=== PATIENT | female | born 1965 | race Caucasian/White ===

== ENCOUNTER 2016-09-17 18:09 | Emergency (ER) | payer MEDICAID, OTHER ==
[~2016-09-17] VITALS: Ht 157.5 cm; Wt 89.0 kg
[2016-09-17 18:13] VITALS: Ht 157.5 cm; Wt 89.0 kg
--- NOTE | 2016-09-17 20:28 | RADRPT ---
PROCEDURE: Left knee x-ray CLINICAL INDICATION: Right knee trauma. TECHNIQUE: 3 views of the left knee were obtained. COMPARISON: None FINDINGS: There is normal mineralization. No acute fracture or dislocation is seen. Mild degenerative changes in the medial and lateral joint compartments with small marginal osteophyt es. Small superior patellar enthesophyte. There is no joint effusion. There is no significant soft tissue swelling. IMPRESSION: No acute fracture. RPTAT: [facility] Physician Ashlee Date Time Electronically viewed and signed by Physician Ashlee on 09/17/2016 20:27 RS/
--- NOTE | 2016-09-17 20:29 | RADRPT ---
PROCEDURE: XR Tibia and Fibula. CLINICAL INDICATION: Right leg trauma. TECHNIQUE: 4 views of the right tibia and fibula were obtained. COMPARISON: No prior studies are available for comparison. FINDINGS: There is normal mineralization and alignment. No fracture or osseous lesion is identified. The joint s are unremarkable. Dystrophic calcifications in the plantar fascia. Otherwise, there are normal so ft tissues without evidence of soft tissue swelling. Plantar and posterior dorsal calcaneal enthesop hytes. IMPRESSION: No acute fracture. RPTAT: [facility] Physician Ashlee Date Time Electronically viewed and signed by Physician Ashlee on 09/17/2016 20:29 RS/
--- NOTE | 2016-09-17 20:31 | RADRPT ---
PROCEDURE: XR Right Ankle. CLINICAL INDICATION: Right ankle pain. TECHNIQUE: AP, oblique and lateral views of the right ankle were performed. COMPARISON: None. FINDINGS: There is normal mineralization and alignment. No acute fracture or osseous lesion is identified. The joints are normal. Dystrophic calcifications in the plantar fascia. Plantar and posterior dorsal calcaneal enthesophyt es. Soft tissue swelling over the bilateral ankle, greater medially. Soft tissues otherwise unrema rkable. IMPRESSION: No acute fracture. RPTAT: [facility] Physician Ashlee Date Time Electronically viewed and signed by Physician Ashlee on 09/17/2016 20:30 RS/
[2016-09-17] MEDS ORDERED: IBUP400T22 PO (20:51)
[2016-09-17] MEDS ORDERED: CEPH500C PO (20:51)
[2016-09-17 21:14] VITALS: BP 143/68; PULSE 77; RESP 18; TEMP 97.1
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
== END 2016-09-17 21:15 | disposition home or self-care (01) ==
LOC: FTE 18:09
DX: S91.001A Unspecified open wound, right ankle, initial encounter (principal); L03.115 Cellulitis of right lower limb; I10 Essential (primary) hypertension; E11.9 Type 2 diabetes mellitus without complications; W22.8XXA Striking against or struck by other objects, initial encounter; Y92.9 Unspecified place or not applicable
CPT/HCPCS: 73562; 73590; 73610; Z7502

== ENCOUNTER 2017-01-27 16:06 | Emergency (ER) | payer MEDICAID ==
[~2017-01-27] VITALS: Wt 79.5 kg
[~2017-01-27 16:06] MED LIST: CEPH500C PO; IBUP400T22 PO
[2017-01-27] MEDS ORDERED: FAMOTIDINE 20 MG INJ IV STA (18:55)
[2017-01-27] MEDS ORDERED: KETOROLAC 15 MG INJ IV STA (18:55)
[2017-01-27] MEDS ORDERED: SOD CHLORIDE 0.9% 1,000 ML IV STA (18:55)
[2017-01-27] MEDS ORDERED: ONDANSETRON 4 MG INJ IV STA (18:55)
[2017-01-27 19:29] LABS: ADD SCAN DIFF NO
[2017-01-27 19:31] LABS: BASOPHIL # 0.1 10^3/ul (0.0-0.1); BASOPHILS % 0.7 % (0.0-2.0); EOSINOPHILS # 1.4 10^3/ul (0.0-0.5); EOSINOPHILS % 12.2 % (0.0-7.0); HEMATOCRIT 37.6 % (37.0-47.0); HEMOGLOBIN 12.3 g/dl (12.0-16.0); LYMPHOCYTES % 26.4 % (15.0-51.0); MEAN CORPUSCULAR HEMOGLOBIN 27.9 pg (29.0-33.0); MEAN CORPUSCULAR HGB CONC 32.7 g/dl (32.0-37.0); MEAN CORPUSCULAR VOLUME 85.3 fl (82.0-101.0); MONOCYTE # 0.7 10^3/ul (0.3-0.9); MONOCYTES % 6.2 % (0.0-11.0); NEUTROPHIL # 6.2 10^3/ul (1.6-7.5); PLATELET COUNT 287 10^3/UL (140-415); RED BLOOD COUNT 4.41 10^6/ul (4.20-5.40); RED CELL DISTRIBUTION WIDTH 13.2 % (11.5-14.5); WHITE BLOOD COUNT 11.5 10^3/ul (4.8-10.8)
[2017-01-27 19:53] LABS: ALBUMIN 3.6 g/dl (3.3-4.9); ALBUMIN/GLOBULIN RATIO 0.67; BILIRUBIN,INDIRECT 0.4 mg/dl (0-1.1); BILIRUBIN,TOTAL 0.4 mg/dl (0.2-1.3); CALCIUM 10.2 mg/dl (8.4-10.2); CREATININE 0.56 mg/dl (0.44-1.00); POTASSIUM 5.1 mmol/L (3.5-5.1); TOTAL PROTEIN 8.9 g/dl (6.1-8.1)
[2017-01-27] MEDS ORDERED: LISI-313 PO (20:02)
[2017-01-27] MEDS ORDERED: GLIP-95 PO (20:02)
[2017-01-27] MEDS ORDERED: ASPI81TA50 PO (20:02)
[2017-01-27] MEDS ORDERED: INSU300I SQ (20:03)
[2017-01-27] MEDS ORDERED: INSULIN LISPRO 100 UNIT/ML VIAL SC STA (20:07)
[2017-01-27 20:11] LABS: ADD UMIC YES; UR ASCORBIC ACID NEGATIVE (NEGATIVE); UR BILIRUBIN (Dip) NEGATIVE (NEGATIVE); UR BLOOD (Dip) 3+ mg/dL (NEGATIVE); UR CLARITY CLEAR (CLEAR); UR COLOR YELLOW (YELLOW); UR GLUCOSE (Dip) 3+ mg/dL (NEGATIVE); UR KETONES (Dip) NEGATIVE (NEGATIVE); UR LEUKOCYTE ESTERASE (Dip) NEGATIVE Leu/ul (NEGATIVE); UR NITRITE (Dip) NEGATIVE (NEGATIVE); UR RBC 33 /HPF (0-5); UR SPECIFIC GRAVITY (Dip) 1.032 (1.003-1.030); UR TOTAL PROTEIN (Dip) NEGATIVE (NEGATIVE); UR UROBILINOGEN (Dip) NEGATIVE (NEGATIVE)
--- NOTE | 2017-01-27 20:48 | RADRPT ---
PROCEDURE: CT scan of the abdomen and pelvis without IV contrast. CLINICAL INDICATION: 51-year-old female with left flank pain. TECHNIQUE: Thin section axial, coronal and sagittal images were performed through the abdomen and pelvis without contrast. Radiation Dose: CTDI: 16 and DLP: 969 One or more of the following dose reduction techniques were used: - Automated exposure control. - Adjustment of the mA and/or kV according to patient size. Use of iterative reconstruction technique. COMPARISON: Chest x-ray 08/13/2016 06:18 a.m. FINDINGS: Soft tissues: Normal.. Lungs and pleural spaces: There ground-glass infiltrates peribronchial thickening in the lingula. T here are small nodules in the left lower lobe. No pleural effusion is identified. Heart: Normal. No pericardial effusion is identified. The liver, common bile duct and gallbladder: The liver is unremarkable. There is some sludge and 82 mm gallstone in the dependent portion of the gallbladder. No gallbladder wall thickening is identi fied. No hepatic mass is identified. Gastrointestinal: Thickening of the gastric wall is attributed to incomplete distension. There is f ecal material throughout the colon. The small bowel loops have a normal caliber. The vermiform lori endix is normal. There is no evidence of diverticulosis or diverticulitis. Pancreas: Normal. Kidneys, bladder and adrenal glands : Normal. Spleen: Normal. Lymph nodes: Normal. Reproductive system and pelvis : A subserosal 3.2 cm leiomyoma is suspected off of the right dorsal fundus of the uterus. No abnormal adnexal mass is identified and no free fluid is noted in the cul- de-sac. Bony elements: There are degenerative osteophytes in the thoracic and lumbosacral spine. There are degenerative changes in both hips. No acute bony fracture or bone metastasis is identified. Vasculature: Normal. IMPRESSION: 1. There ground-glass infiltrates in the lingula and small nodules in the left lower lobe measuring up to 4.4 mm in size. There is peribronchial thickening in the bronchial weston being to the lingul a and left lower lobe. These findings may be the result of small airway disease and could be the re sult of a pneumonia. TB and other granulomatous etiologies should be excluded. 2. 2 mm cholelith with a small amount of sludge in the gallbladder. 3. 3.2 cm subserosal leiomyoma off of the right fundus of the uterus. 4. Osteoarthritis of the thoracic and lumbosacral spine. RPTAT:AAJJ Austin Dominguez Physician Date Time Electronically viewed and signed by Austin Dominguez Physician on 01/27/2017 20:47 PORTILLO/
--- NOTE | 2017-01-27 20:52 | ERD ---
ER Documentation Chief Complaint Date/Time DATE: 01/27/17 TIME: 20:49 Chief Complaint luq pain w emesis this am HPI This is a 51-year-old female who presents to the emergency room for evaluation of left-sided flank pain. The patient states that she has vomited once, and describes her pain as a sharp pain with no radiation. She presents to the emergency room for further evaluation and denying any fever or burning associated with this. She does say she has a history of high blood pressure and diabetes and she takes insulin for that. ROS All systems reviewed and are negative except as per history of present illness. Medications Home Meds Reported Medications Insulin Glargine,Hum.rec.anlog (Thuanradha [place]) 300 Unit/1 Ml Insuln.pen, 15 UNIT SQ QHS 01/27/17 Aspirin (Aspir-Low) 81 Mg Tablet.dr, 81 MG PO DAILY 01/27/17 Lisinopril* (Lisinopril*) 5 Mg Tablet, 5 MG PO DAILY, #30 TAB 01/27/17 Glipizide* (Glipizide*) 10 Mg Tablet, 20 MG PO AC BREAKFAST DINNER, TAB 01/27/17 Discontinued Scripts Ibuprofen* (Motrin*) 400 Mg Tab, 400 MG PO Q6H Y for PAIN AND OR ELEVATED TEMP, #30 TAB Prov:ROLANDO ROMAN MD 09/17/16 Cephalexin* (Cephalexin*) 500 Mg Capsule, 500 MG PO Q8, #21 CAP Prov:ROLANDO ROMAN MD 09/17/16 Allergies Allergies: Coded Allergies: No Known Allergy (Unverified , 01/27/17) PMhx/Soc Medical and Surgical Hx: pt denies Surgical Hx History of Surgery: No Anesthesia Reaction: No Hx Neurological Disorder: No Hx Respiratory Disorders: No Hx Cardiac Disorders: Yes (HTN) Hx Psychiatric Problems: No Hx Miscellaneous Medical Probl: Yes (DM II) Hx Alcohol Use: No Hx Substance Use: No Hx Tobacco Use: No Smoking Status: Never smoker Physical Exam Vitals Vital Signs Date Time Temp Pulse Resp B/P Pulse Ox O2 Delivery O2 Flow Rate FiO2 01/27/17 20:35 103 23 140/83 96 Room Air 01/27/17 19:21 101 20 150/77 96 Room Air 01/27/17 16:10 99.2 117 20 118/65 96 Physical Exam INITIAL VITAL SIGNS: Reviewed by me GENERAL: The patient is well developed and appropriate for usual state of health in no apparent distress HEENT: Pupils equal, round, and reactive to light. EOMI. There is no scleral icterus. NECK: C-spine is soft and supple, there is no meningismus. There is no cervical lymphadenopathy. LUNGS: Clear to auscultation bilaterally. There are no rales, wheezes or rhonchi. HEART: Regular rate and rhythm, no murmurs, clicks, rubs or gallops. ABDOMEN: Left upper quadrant tenderness to palpation, otherwise, negative Schwartz sign, soft, non-tender, non-distended. There are bowel sounds in all four quadrants. No rebound or guarding. EXTREMITIES: There is no peripheral cyanosis or edema. No focal swelling or erythema. NEUROLOGICAL: The patient moves all four extremities with 5/5 strength. Cranial nerves II - XII are intact. Normal gait. Alert and oriented SKIN: There is no apparent rash or petechiae. HEME/LYMPHATIC: There is no evidence of excessive bruising or lymphedema. PSYCHIATRIC: The patient does not appear anxious or depressed. Result Diagram: 01/27/17190901/27/171909 Results 24 hrs Laboratory Tests Test 01/27/17 19:00 01/27/17 19:10 01/27/17 20:33 Urine Color YELLOW Urine Clarity CLEAR Urine pH 6.0 Urine Specific [place] 1.032 Urine Ketones NEGATIVEmg/dL Urine Nitrite NEGATIVEmg/dL Urine Bilirubin NEGATIVEmg/dL Urine Urobilinogen NEGATIVEmg/dL Urine Leukocyte Esterase NEGATIVELeu/ul Urine Microscopic RBC 33/HPF Urine Microscopic WBC 12/HPF Urine Hemoglobin 3+mg/dL Urine Glucose 3+mg/dL Urine Total Protein NEGATIVEmg/dl White Blood Count 11.510^3/ul Red Blood Count 4.4110^6/ul Hemoglobin 12.3g/dl Hematocrit 37.6% Mean Corpuscular Volume 85.3fl Mean Corpuscular Hemoglobin 27.9pg Mean Corpuscular Hemoglobin Concent 32.7g/dl Red Cell Distribution Width 13.2% Platelet Count 36301^3/UL Mean Platelet Volume 10.0fl Neutrophils % 54.0% Lymphocytes % 26.4% Monocytes % 6.2% Eosinophils % 12.2% Basophils % 0.7% Neutrophils # 6.210^3/ul Lymphocytes # 3.010^3/ul Monocytes # 0.710^3/ul Eosinophils # 1.410^3/ul Basophils # 0.110^3/ul Nucleated Red Blood Cells # 0.010^3/ul Sodium Level 136mmol/L Potassium Level 5.1mmol/L Chloride Level 90mmol/L Carbon Dioxide Level 32mmol/L Anion Gap 19 Blood Urea Nitrogen 17mg/dl Creatinine 0.56mg/dl Glucose Level 476mg/dl Calcium Level 10.2mg/dl Total Bilirubin 0.4mg/dl Direct Bilirubin 0.00mg/dl Indirect Bilirubin 0.4mg/dl Aspartate Amino Transf (AST/SGOT) 26IU/L Alanine Aminotransferase (ALT/SGPT) 41IU/L Alkaline Phosphatase 186IU/L Total Protein 8.9g/dl Albumin 3.6g/dl Globulin 5.30g/dl Albumin/Globulin Ratio 0.67 Lipase 95U/L Bedside Glucose 424mg/dL Current Medications Medications (Trade) Dose Ordered Sig/Naheed Route PRN Reason Start Time Stop Time Status Last Admin Dose Admin Sodium Chloride (NS) 1,000 ml @ 1,000 mls/hr Q1H STAT IV 01/27/17 18:55 01/27/17 19:54 DC 01/27/17 19:20 Ondansetron HCl (Zofran Inj) 4 mg ONCE STAT IV 01/27/17 18:55 01/27/17 18:57 DC 01/27/17 19:20 Famotidine (Pepcid Iv) 20 mg ONCE STAT IV 01/27/17 18:55 01/27/17 18:57 DC 01/27/17 19:20 Ketorolac Tromethamine (Toradol) 15 mg ONCE STAT IV 01/27/17 18:55 01/27/17 18:57 DC 01/27/17 19:20 Insulin Human Lispro (Humalog) 12 unit ONCE STAT SC 01/27/17 20:07 01/27/17 20:10 DC 01/27/17 20:38 Procedures/MDM CT abdomen pelvis without: 1. There ground-glass infiltrates in the lingula and small nodules in the left lower lobe measuring up to 4.4 mm in size. There is peribronchial thickening in the bronchial weston being to the lingula and left lower lobe. These findings may be the result of small airway disease and could be the result of a pneumonia. TB and other granulomatous etiologies should be excluded. 2. 2 mm cholelith with a small amount of sludge in the gallbladder. 3. 3.2 cm subserosal leiomyoma off of the right fundus of the uterus. 4. Osteoarthritis of the thoracic and lumbosacral spine. This 51-year-old female presents to the ER for evaluation of abdominal pain. When I evaluated this patient she did have some pain in the left upper quadrant. The patient was hemodynamically stable, nontoxic appearing. Lab work was obtained and the urinalysis did show hematuria. I did obtain a CT of abdomen pelvis and CT shows a groundglass infiltrates in the lingula of the left lower lobe. This is an area where the patient is having some discomfort. She is not hypoxic. She is not febrile at this time. She was given Levaquin in the emergency room and will be discharged home at this time with a prescription for Levaquin to take over the course of the next 7 days. This patient also was found to have a blood sugar of 472. She was given 1 L of fluid and was given 12 units of subcutaneous insulin. Patient states that she will take her Lantus at night tonight. Departure Diagnosis: Primary Impression: Left lower lobe pneumonia Additional Impression: Uncontrolled diabetes mellitus Condition: Stable PHILIPP MORAN DO Jan 27, 2017 20:52
[2017-01-27] MEDS ORDERED: LEVO750T8 PO (20:55)
[2017-01-27] MEDS ORDERED: LEVOFLOXACIN 750 MG TABLET PO ONE (21:00)
[2017-01-27 21:20] VITALS: BP 126/61; PULSE 96; RESP 17
== END 2017-01-27 21:22 | disposition home or self-care (01) ==
LOC: E/R 16:06
DX: J18.1 Lobar pneumonia, unspecified organism (principal); E11.9 Type 2 diabetes mellitus without complications; I10 Essential (primary) hypertension; Z79.82 Long term (current) use of aspirin; Z79.4 Long term (current) use of insulin
CPT/HCPCS: 74176; 80053; 81001; 82962; 83690; 85025; 96372; 96374; 96375; J1815; J1885; J2405; J7030; Z7502; Z7610

== ENCOUNTER 2018-07-25 22:54 | Inpatient (IN) | payer MEDICAID ==
[~2018-07-25] VITALS: Ht 165.1 cm; Wt 98.0 kg
[~2018-07-25 22:54] MED LIST changes: +ASPI81TA50 PO; -CEPH500C PO; +GLIP10TA14 PO; -IBUP400T22 PO; +INSU300I SQ; +LEVO750T8 PO; +LISI-313 PO
--- NOTE | 2018-07-26 04:09 | ERD ---
ER Documentation Chief Complaint Chief Complaint R FOOT PAIN S/P FALL HPI This is a 52-year-old female with right foot pain status post fall. Patient was walking she tripped. She complains of pain in her right ankle. Denies fevers chills nausea vomiting. Denies any other trauma. ROS All systems reviewed and are negative except as per history of present illness. Medications Home Meds Reported Medications Insulin Glargine,Hum.rec.anlog ([place]i Solostar) 300 Unit/1 Ml Insuln.pen, 30 UNIT SQ BID 01/27/17 Aspirin (Aspir-Low) 81 Mg Tablet.dr, 81 MG PO DAILY 01/27/17 Lisinopril* (Lisinopril*) 5 Mg Tablet, 5 MG PO DAILY, #30 TAB 01/27/17 Glipizide* (Glipizide*) 10 Mg Tablet, 20 MG PO AC BREAKFAST DINNER, TAB 01/27/17 Discontinued Scripts Levofloxacin* (Levofloxacin*) 750 Mg Tablet, 750 MG PO DAILY for 10 Days, TAB Prov:PHILIPP MORAN DO 01/27/17 Allergies Allergies: Coded Allergies: No Known Allergy (Unverified , 07/26/18) PMhx/Soc History of Surgery: No Anesthesia Reaction: No Hx Neurological Disorder: No Hx Respiratory Disorders: No Hx Cardiac Disorders: Yes (HTN) Hx Psychiatric Problems: No Hx Miscellaneous Medical Probl: Yes (DM II) Hx Alcohol Use: No Hx Substance Use: No Hx Tobacco Use: No Smoking Status: Never smoker Physical Exam Vitals Vital Signs Date Temp Pulse Resp B/P (MAP) Pulse Ox O2 O2 Flow FiO2 Time Delivery Rate 07/26/18 87 19 182/83 100 Room Air 02:24 (116) 07/25/18 99.5 118 20 234/108 96 23:17 (150) Physical Exam Const: No acute distress Head: Atraumatic Eyes: Normal Conjunctiva ENT: Normal External Ears, Nose and Mouth. Neck: Full range of motion. No meningismus. Resp: Clear to auscultation bilaterally Cardio: Regular rate and rhythm, no murmurs Abd: Soft, non tender, non distended. Normal bowel sounds Skin: No petechiae or rashes Back: No midline or flank tenderness Ext: No cyanosis, or edema Neur: Awake and alert Psych: Normal Mood and Affect Procedures/MDM Foot and ankle x-ray was read by the radiologist as a trimalleolar fracture. Please see his full dictation for report. Medical decision making: This is a patient with unstable trimalleolar fracture. Patient will be admitted to hospitalist with Dr. Savage for consultation of orthopedics. Departure Diagnosis: Primary Impression: Trimalleolar fracture Encounter type: initial encounter Fracture type: closed Laterality: r [facility] Qualified Codes: S82.851A - Displaced trimalleolar fracture of right lower leg, initial encounter for closed fracture Condition: ALETHA Prieto Jul 26, 2018 04:09
[2018-07-26] MEDS ORDERED: NACL 0.9% 3 ML SYG IV SCH (04:30)
[2018-07-26] MEDS ORDERED: HYDROCODONE/APAP (5/325) TAB PO PRN (04:30)
[2018-07-26] MEDS ORDERED: ALBUTEROL/IPRATROPIUM (NEB) 3 ML AMP HHN PRN (04:30)
[2018-07-26] MEDS ORDERED: ONDANSETRON 4 MG INJ IV PRN (04:30)
[2018-07-26] MEDS: HYDROCODONE/APAP (5/325) TAB PO PRN ×2 (05:05→13:24)
[2018-07-26] MEDS ORDERED: GLUCOSE GEL 15 GRAM TUBE BUCCAL PRN (05:30)
[2018-07-26] MEDS ORDERED: GLUCOSE GEL 15 GRAM TUBE PO PRN ×2 (05:30)
[2018-07-26] MEDS ORDERED: GLUCAGON 1 MG INJ IM PRN (05:30)
[2018-07-26] MEDS ORDERED: DEXTROSE 50% 50 ML SYRINGE IV PRN ×2 (05:30)
[2018-07-26 05:36] VITALS: Ht 165.1 cm; Wt 98.0 kg
[2018-07-26 05:37] VITALS: BP 165/74; PULSE 74; RESP 18
--- NOTE | 2018-07-26 06:05 | HP ---
Date/Time of Note Date/Time of Note DATE: 07/26/18 TIME: 06:01 Assessment/Plan VTE Prophylaxis Pharmacological prophylaxis: heparin Lines/Catheters IV Catheter Type (from Nrsg): Saline Lock Assessment/Plan Assessment/Plan 1. Right malleolar fracture: Status post mechanical fall -Awaiting Ortho eval -Pain management 2. Hypertensive urgency: Adjust antihypertensives as needed 3. Diabetes with hyperglycemia: Patient insulin-dependent -Check A1c -Insulin as needed 4. Obesity with a BMI of 36: Weight reduction advised Result Diagram: 07/26/18 0438 07/26/18 0438 Results 24hrs Laboratory Tests Test 07/26/18 04:38 White Blood Count 11.3 H Red Blood Count 4.32 Hemoglobin 12.5 Hematocrit 37.2 Mean Corpuscular Volume 86.1 Mean Corpuscular Hemoglobin 28.9 L Mean Corpuscular Hemoglobin Concent 33.6 Red Cell Distribution Width 12.4 Platelet Count 206 # Mean Platelet Volume 11.0 H Immature Granulocytes % 0.400 Neutrophils % 75.8 Lymphocytes % 18.3 Monocytes % 4.5 Eosinophils % 0.7 Basophils % 0.3 Nucleated Red Blood Cells % 0.0 Immature Granulocytes # 0.050 H Neutrophils # 8.6 H Lymphocytes # 2.1 Monocytes # 0.5 Eosinophils # 0.1 Basophils # 0.0 Nucleated Red Blood Cells # 0.0 Prothrombin Time 12.0 Prothrombin Time Ratio 0.9 INR International Normalized Ratio 0.88 Activated Partial Thromboplast Time 24.1 Sodium Level 141 Potassium Level 4.8 Chloride Level 102 Carbon Dioxide Level 26 Anion Gap 13 Blood Urea Nitrogen 12 Creatinine 0.35 L Est Glomerular Filtrat Rate mL/min > 60 Glucose Level 311 H Calcium Level 9.5 Total Bilirubin 0.3 Direct Bilirubin 0.00 Indirect Bilirubin 0.3 Aspartate Amino Transf (AST/SGOT) 51 H Alanine Aminotransferase (ALT/SGPT) 56 Alkaline Phosphatase 168 H Total Protein 8.1 Albumin 4.1 Globulin 4.00 H Albumin/Globulin Ratio 1.02 Lipase 73 HPI/ROS Admit Date/Time Admit Date/Time Jul 26, 2018 at 04:04 Hx of Present Illness This is a 52-year-old female with a history of hypertension and insulin-depe ndent diabetes who presents the ER complaining of right ankle/foot pain status post fall. Patient unfortunately fell down stairs while carrying an object. When presented to ER, blood pressure was 234/108 with a heart rate of 118. Right ankle/foot x-ray shows trimalleolar fractures with tibiotalar subluxation. PMH/Family/Social Past Medical History Medical History: diabetes, hypertension Medications Current Medications IV Flush (NS 3 ml) 3 ml PER PROTOCOL IV ; Start 07/26/18 at 04:30 Ondansetron HCl (Zofran Inj) 4 mg Q6H PRN IV NAUSEA AND/OR VOMITING; Start 07/26/18 at 04:30 Acetaminophen (Tylenol Tab) 650 mg Q6H PRN PO PAIN LEVEL 1-3 OR FEVER; Start 07/26/18 at 04:30 Acetaminophen/ Hydrocodone Bitart ([place] (5/325)) 1 tab Q6H PRN PO MODERATE PAIN LEVEL 4-6; Start 07/26/18 at 04:30 Acetaminophen/ Hydrocodone Bitart ([place] (5/325)) 2 tab Q6H PRN PO SEVERE PAIN LEVEL 7-10 Last administered on 07/26/18at 05:05; Admin Dose 2 TAB; Start 07/26/18 at 04:30 Heparin Sodium (Porcine) (Heparin (5000 Units/1ml)) 5,000 unit Q12 SC ; Start 07/26/18 at 09:00 Albuterol/ Ipratropium (Duoneb) 3 ml Q2H RESP THERAPY PRN HHN SHORTNESS OF BREATH; Start 07/26/18 at 04:30 Diagnostic Test (Pha) (Accu-Chek) 1 ea 02 XX ; Start 07/27/18 at 02:00 Insulin Aspart (Novolog Insulin Pen) NOVOLOG *MODERATE* ALGORITHM WITH MEALS BEDTIME SC ; Start 07/26/18 at 07:50 Aspirin (Halfprin) 81 mg DAILY PO ; Start 07/26/18 at 09:00 Lisinopril (Zestril) 5 mg DAILY PO ; Start 07/26/18 at 09:00 Insulin Glargine (Lantus) 30 units BID@0800,2000 SC ; Start 07/26/18 at 08:00 Miscellaneous Information 1 ea NOTE XX ; Start 07/26/18 at 05:30 Glucose (Glutose) 15 gm Q15M PRN PO DECREASED GLUCOSE; Start 07/26/18 at 05:30 Glucose (Glutose) 22.5 gm Q15M PRN PO DECREASED GLUCOSE; Start 07/26/18 at 05:30 Dextrose (D50w Syringe) 25 ml Q15M PRN IV DECREASED GLUCOSE; Start 07/26/18 at 05:30 Dextrose (D50w Syringe) 50 ml Q15M PRN IV DECREASED GLUCOSE; Start 07/26/18 at 05:30 Glucagon (Glucagen) 1 mg Q15M PRN IM DECREASED GLUCOSE; Start 07/26/18 at 05:30 Glucose (Glutose) 15 gm Q15M PRN BUCCAL DECREASED GLUCOSE; Start 07/26/18 at 05:30 Coded Allergies: No Known Allergy (Unverified , 07/26/18) Past Surgical History Past Surgical Hx: other (See HPI) Family History Significant Family History: no pertinent family hx Social History Alcohol Use: none Smoking Status: Never smoker Drug Use: none Exam/Review of Systems Vital Signs Vitals Vital Signs Date Temp Pulse Resp B/P (MAP) Pulse Ox O2 O2 Flow FiO2 Time Delivery Rate 07/26/18 97.5 74 18 165/74 97 Room Air 05:37 (104) Intake and Output 07/25/18 07/25/18 07/26/18 1515:00 23:00 07:00 IntakeIntake Total 200 ml OutputOutput Total 200 ml BalanceBalance 0 ml Exam Constitutional: other (No acute distress) Head: normocephalic, atraumatic Eyes: EOMI, PERRL Respiratory: clear to auscultation, normal air movement Cardiovascular: other (Tachycardic regular rhythm) Gastrointestinal: soft, non-tender Extremities: other (Right lower extremity/ankle/foot covered. Sensation at the toes intact) ALETHA ALVAREZ MD Jul 26, 2018 06:05
--- NOTE | 2018-07-26 06:15 | NUR ---
New admission with R ankle Fx; alert, oriented x4; with h/o DM and HTN.
[2018-07-26] MEDS ORDERED: INSULIN GLARGINE [LANTus] (100 UNITS/ML) SYG SC SCH (08:00)
[2018-07-26 08:05] VITALS: BP 124/84; PULSE 63; RESP 18
[2018-07-26 08:13] VITALS: BP 153/71; PULSE 83; RESP 18
[2018-07-26] MEDS: ASPIRIN (EC) 81 MG TAB PO SCH (09:00)
[2018-07-26] MEDS: LISINOPRIL 5 MG TAB PO SCH (09:07)
[2018-07-26] MEDS: HEPARIN 5,000 UNIT/1 ML VIAL SC SCH ×2 (09:11→20:27)
[2018-07-26] MEDS: INSULIN ASPART [NOVOLOG] 3 ML PEN SC SCH ×4 (09:16→20:24)
[2018-07-26 15:05] VITALS: BP 133/61; PULSE 87; RESP 18
--- NOTE | 2018-07-26 16:43 | PN ---
Date/Time of Note Date/Time of Note DATE: 07/26/18 TIME: 16:39 Assessment/Plan VTE Prophylaxis Risk score (from Nsg)>0 risk: 7 SCD applied (from Nsg): Yes Pharmacological prophylaxis: heparin Lines/Catheters IV Catheter Type (from Nrsg): Saline Lock Assessment/Plan Assessment/Plan 1. Right malleolar fracture: Status post mechanical fall, Awaiting Ortho eval, Pain management 2. Hypertension, controlled 3. Diabetes with hyperglycemia, lantus and ISS 4. Obesity with a BMI of 36: Weight reduction advised 5. DVT prophylaxis: heparin Result Diagram: 07/26/188 07/26/188 Results 24hrs Laboratory Tests Test 07/26/18 04:38 07/26/18 09:06 07/26/18 12:55 White Blood Count 11.3 H Red Blood Count 4.32 Hemoglobin 12.5 Hematocrit 37.2 Mean Corpuscular Volume 86.1 Mean Corpuscular Hemoglobin 28.9 L Mean Corpuscular Hemoglobin Concent 33.6 Red Cell Distribution Width 12.4 Platelet Count 206 # Mean Platelet Volume 11.0 H Immature Granulocytes % 0.400 Neutrophils % 75.8 Lymphocytes % 18.3 Monocytes % 4.5 Eosinophils % 0.7 Basophils % 0.3 Nucleated Red Blood Cells % 0.0 Immature Granulocytes # 0.050 H Neutrophils # 8.6 H Lymphocytes # 2.1 Monocytes # 0.5 Eosinophils # 0.1 Basophils # 0.0 Nucleated Red Blood Cells # 0.0 Prothrombin Time 12.0 Prothrombin Time Ratio 0.9 INR International Normalized Ratio 0.88 Activated Partial Thromboplast Time 24.1 Sodium Level 141 Potassium Level 4.8 Chloride Level 102 Carbon Dioxide Level 26 Anion Gap 13 Blood Urea Nitrogen 12 Creatinine 0.35 L Est Glomerular Filtrat Rate mL/min > 60 Glucose Level 311 H Calcium Level 9.5 Total Bilirubin 0.3 Direct Bilirubin 0.00 Indirect Bilirubin 0.3 Aspartate Amino Transf (AST/SGOT) 51 H Alanine Aminotransferase (ALT/SGPT) 56 Alkaline Phosphatase 168 H Total Protein 8.1 Albumin 4.1 Globulin 4.00 H Albumin/Globulin Ratio 1.02 Lipase 73 Bedside Glucose 233 H 226 H Subjective 24 Hr Interval Summary Free Text/Dictation right ankle pain Exam/Review of Systems Vital Signs Vitals Vital Signs Date Temp Pulse Resp B/P (MAP) Pulse Ox O2 O2 Flow FiO2 Time Delivery Rate 1/16/19 98.5 87 18 133/61 97 15:05 (85) 07/26/18 Room Air 08:13 Intake and Output 07/25/18 07/25/18 07/26/18 1515:00 23:00 07:00 IntakeIntake Total 200 ml OutputOutput Total 200 ml BalanceBalance 0 ml Exam Constitutional: alert, oriented, well developed, obese Psych: no complaints, nl mood/affect Head: normocephalic, atraumatic Eyes: nl conjunctiva, EOMI, nl lids ENMT: nl external ears & nose, nl lips & teeth, nl nasal mucosa & septum Neck: supple, non-tender Respiratory: clear to auscultation, normal air movement; No congested cough, No crackles/rales, No diminished breath sounds, No intercostal retraction, No labored breathing, No respirations, No tactile fremitus, No wheezing, No other Cardiovascular: regular rate and rhythm, nl pulses; No bruits, No diastolic murmur, No edema, No gallop, No irregular rhythm, No jugular venous distention (JVD), No murmurs/extra sounds, No rub, No systolic murmur, No S3, No S4, No other Gastrointestinal: soft, nl liver, spleen, non-tender Extremities: normal pulses, other (right ankle/foot in cast) Neurological: SAUTE CHEF II-XII intact, nl mental status, nl speech, nl strength Skin: nl turgor Medications Medications Current Medications IV Flush (NS 3 ml) 3 ml PER PROTOCOL IV ; Start 07/26/18 at 04:30 Ondansetron HCl (Zofran Inj) 4 mg Q6H PRN IV NAUSEA AND/OR VOMITING; Start 07/26/18 at 04:30 Acetaminophen (Tylenol Tab) 650 mg Q6H PRN PO PAIN LEVEL 1-3 OR FEVER; Start 07/26/18 at 04:30 Acetaminophen/ Hydrocodone Bitart ([place] (5/325)) 1 tab Q6H PRN PO MODERATE PAIN LEVEL 4-6; Start 07/26/18 at 04:30 Acetaminophen/ Hydrocodone Bitart ([place] (5/325)) 2 tab Q6H PRN PO SEVERE PAIN LEVEL 7-10 Last administered on 07/26/18at 13:24; Admin Dose 2 TAB; Start 07/26/18 at 04:30 Heparin Sodium (Porcine) (Heparin (5000 Units/1ml)) 5,000 unit Q12 SC Last a dministered on 07/26/18at 09:11; Admin Dose 5,000 UNIT; Start 07/26/18 at 09:00 Albuterol/ Ipratropium (Duoneb) 3 ml Q2H RESP THERAPY PRN HHN SHORTNESS OF BREATH; Start 07/26/18 at 04:30 Diagnostic Test (Pha) (Accu-Chek) 1 ea 02 XX ; Start 07/27/18 at 02:00 Insulin Aspart (Novolog Insulin Pen) NOVOLOG *MODERATE* ALGORITHM WITH MEALS BEDTIME SC Last administered on 07/26/18at 13:17; Admin Dose 6 UNIT; Start 07/26/18 at 07:50 Aspirin (Halfprin) 81 mg DAILY PO ; Start 07/26/18 at 09:00 Lisinopril (Zestril) 5 mg DAILY PO Last administered on 07/26/18at 09:07; Admin Dose 5 MG; Start 07/26/18 at 09:00 Insulin Glargine (Lantus) 30 units BID@0800,2000 SC Last administered on 07/26/18at 09:12; Admin Dose 30 UNITS; Start 07/26/18 at 08:00 Miscellaneous Information 1 ea NOTE XX ; Start 07/26/18 at 05:30 Glucose (Glutose) 15 gm Q15M PRN PO DECREASED GLUCOSE; Start 07/26/18 at 05:30 Glucose (Glutose) 22.5 gm Q15M PRN PO DECREASED GLUCOSE; Start 07/26/18 at 05:30 Dextrose (D50w Syringe) 25 ml Q15M PRN IV DECREASED GLUCOSE; Start 07/26/18 at 05:30 Dextrose (D50w Syringe) 50 ml Q15M PRN IV DECREASED GLUCOSE; Start 07/26/18 at 05:30 Glucagon (Glucagen) 1 mg Q15M PRN IM DECREASED GLUCOSE; Start 07/26/18 at 05:30 Glucose (Glutose) 15 gm Q15M PRN BUCCAL DECREASED GLUCOSE; Start 07/26/18 at 05 :30 AGAPITO MARINO MD Jul 26, 2018 16:43
--- NOTE | 2018-07-26 16:45 | NUR ---
CONDITION Pt resting in bed. Denies pain at this time. Dr Gaines contacted and made aware blood glucose > 180 in 2 consecutive times. made aware, and he stated: "for now we will watch it". No new orders at this time.
--- NOTE | 2018-07-26 18:30 | NUR ---
END OF SHIFT NOTE PT RESTING IN BED. DENIES PAIN, SOB OR DISCOMFORT. PER DR MONROE, PT MAY NEED SX MORENA. DR MORILLO CONTACTED AND MADE AWARE OF DR MONROE REQUEST FOR MEDICAL CLEARANCE. ORDERS RECEIVED, PT TO CT SCAN SHORTLY. PER DR MONROE, UNABLE TO DETERMINE AT THIS TIME OF PT SHOULD BE NPO, AND IF ASA AND HEPARIN SHOULD BE PLACED ON HOLD AT THIS TIME. SAFETY MAINTAINED THROUGHOUT SHIFT. BED IN LOW POSITION, CALL LIGHT IN REACH, BED ALARM ON. WILL CONTINUE MONITORING AND WILL ENDORSE POC TO ANITHA RN.
[2018-07-26] MEDS: INSULIN GLARGINE [LANTus] (100 UNITS/ML) SYG SC SCH (20:25)
[2018-07-26 20:30] VITALS: BP 137/74; PULSE 81; RESP 18
[2018-07-26 20:34] VITALS: BP 122/74; PULSE 82; RESP 19
--- NOTE | 2018-07-26 21:30 | NUR ---
RN NOTE: Dr Savage visited the patient, explained about the upcoming surgery tomorrow. Patient still not cleared medically, I called hospitalist to make sure medical team is aware. Per dr Mckeon, morning team contacted substitute teacher which is suppose to check on Pt in am. Patient will stay NPO from midnight. Consent prepared ,pt will sign in am.
--- NOTE | 2018-07-26 22:56 | CONS ---
DATE OF ADMISSION: 07/26/2018 DATE OF CONSULTATION: 07/26/2018 HISTORY OF PRESENT ILLNESS: The patient is a 52-year-old somewhat obese female who was admitted on 0 07/26/2018, when she came to the Emergency Room complaining of painful swelling involving her right an kle. According to available information, she had sustained a twisting injury to her right ankle and foot when she was falling down the stairs while carrying an object on the day of her admission. Foll owing initial evaluation in the Emergency Room, she was treated with the splint immobilization and wa s admitted. She is known to have hypertension and insulin-dependent diabetes. PHYSICAL EXAMINATION: GENERAL: My examination revealed a 52-year-old somewhat obese female who was not in any acute distre ss. EXTREMITIES: Her right ankle was immobilized in a posterior splint. There were no signs of acute ne urovascular compromise involving the right foot or ankle. X-rays of the right ankle revealed a bimalleolar and possibly trimalleolar fracture involving the rig ht ankle with the disrupted ankle mortise. DIAGNOSTIC IMPRESSION: Possible trimalleolar fracture of the right ankle with the disrupted ankle mo rtise. TREATMENT PLAN: To surgery for open reduction and internal fixation as soon as she can be medically cleared for surgery. Dictated By: KELLEY MONROE MD IK/NTS Conf#: [id number] DID#: [id number] CC: ROLANDO ROMAN MD; AGAPITO MARINO MD; ALETHA ALVAREZ MD; PHILIPP MORAN DO; KELLEY MONROE MD;*[facility]*
[2018-07-27] VITALS (14 sets, daily range): BP systolic 94–149; BP diastolic 44–69; PULSE 73–93; RESP 14–20
[2018-07-27] MEDS ORDERED: ACCU-CHEK XX SCH (02:00)
[2018-07-27] MEDS: ACCU-CHEK XX SCH (02:31)
--- NOTE | 2018-07-27 03:25 | NUR ---
RN NOTE: Report given to Lor/TRAVIS for continuation of care.
--- NOTE | 2018-07-27 03:44 | NUR ---
RN notes; Assumed patient care,full report received from Alondra ROBLES.
--- NOTE | 2018-07-27 05:51 | NUR ---
END OF SHIFT SUMMARY; Pt AAOx4,VSS and afebrile.Kept NPO for pending R ankle ORIF surgery by ,pending medical clearance.BG checks completed this shift with coverage given.Denies pain.Safety maintained.Call light within reach.Instructed to call for assistance.POC reviewed with patient.Sepsis screen negative.Will continue to monitor patient and follow POC.
[2018-07-27] MEDS: INSULIN ASPART [NOVOLOG] 3 ML PEN SC SCH ×7 (07:50→21:00)
--- NOTE | 2018-07-27 08:00 | NUR ---
PT RECEIVED IN BED. A,A,OX4. NOT IN ANY ACUTE DISTRESS. DENIES ANY PAIN AT HIS TIME. THE PLAN OF CARE DISCUSSED W/ THE PT, VERBALIZED UNDERSTANDING. CALL LIGHT IN REACH. PT ENCOURAGED TO CALL FOR ASSISTANCE. WILL CONT. MONITORING. WILL CONT. W/ THE PLAN OF CARE.
[2018-07-27] MEDS: LISINOPRIL 5 MG TAB PO SCH (08:31)
[2018-07-27] MEDS: ASPIRIN (EC) 81 MG TAB PO SCH (08:31)
[2018-07-27] MEDS: HEPARIN 5,000 UNIT/1 ML VIAL SC SCH ×2 (08:31→19:54)
[2018-07-27] MEDS: INSULIN GLARGINE [LANTus] (100 UNITS/ML) SYG SC SCH ×2 (09:38→20:00)
[2018-07-27] MEDS: SOD CHLORIDE 0.45% 1,000 ML IV SCH ×2 (11:10→22:50)
[2018-07-27] MEDS: morphine 4 MG/ML VIAL IV PRN (12:34)
--- NOTE | 2018-07-27 14:28 | PN ---
Date/Time of Note Date/Time of Note DATE: 07/27/18 TIME: 14:22 Assessment/Plan VTE Prophylaxis Risk score (from Ns)>0 risk: 8 SCD applied (from Ns): Yes Pharmacological prophylaxis: heparin Lines/Catheters IV Catheter Type (from Nrsg): Saline Lock Assessment/Plan Assessment/Plan 1. Right malleolar fracture: Status post mechanical fall, planned for surgery today 2. Hypertension, controlled 3. Diabetes with hyperglycemia, lantus and ISS 4. Obesity with a BMI of 36: Weight reduction advised 5. DVT prophylaxis: heparin 6. Medically cleared for surgery Result Diagram: 07/27/18 0452 07/27/182 Results 24hrs Laboratory Tests Test 07/26/18 18:01 07/26/18 20:17 07/26/18 20:20 07/27/18 02:23 Bedside Glucose 229 H 247 H 266 H Troponin I < 0.012 Test 07/27/18 04:52 07/27/18 08:29 07/27/18 09:34 07/27/18 12:27 White Blood Count 8.9 # Red Blood Count 4.34 Hemoglobin 12.5 Hematocrit 37.9 Mean Corpuscular 87.3 Volume Mean Corpuscular 28.8 L Hemoglobin Mean Corpuscular 33.0 Hemoglobin Concent Red Cell 12.8 Distribution Width Platelet Count 204 Mean Platelet Volume 10.5 H Immature 0.400 Granulocytes % Neutrophils % 65.3 Lymphocytes % 26.1 Monocytes % 5.7 Eosinophils % 2.2 Basophils % 0.3 Nucleated Red Blood 0.0 Cells % Immature 0.040 H Granulocytes # Neutrophils # 5.8 Lymphocytes # 2.3 Monocytes # 0.5 Eosinophils # 0.2 Basophils # 0.0 Nucleated Red Blood 0.0 Cells # Sodium Level 137 Potassium Level 4.4 Chloride Level 103 Carbon Dioxide Level 27 Anion Gap 7 Blood Urea Nitrogen 14 Creatinine 0.46 Est Glomerular > 60 Filtrat Rate mL/min Glucose Level 277 H Hemoglobin A1c 11.1 H Calcium Level 9.1 Phosphorus Level 4.1 Magnesium Level 1.9 Bedside Glucose 237 H 217 168 Subjective 24 Hr Interval Summary Free Text/Dictation right ankle pain Exam/Review of Systems Vital Signs Vitals Vital Signs Date Temp Pulse Resp B/P (MAP) Pulse Ox O2 O2 Flow FiO2 Time Delivery Rate 07/27/18 98.3 78 18 114/55 95 08:37 (74) 07/26/18 Room Air 08:13 Intake and Output 07/26/18 07/26/18 07/27/18 1515:00 23:00 07:00 IntakeIntake Total 400 ml 1320 ml OutputOutput Total 1000 ml 250 ml 300 ml BalanceBalance -600 ml 1070 ml -300 ml Exam Constitutional: alert, oriented, well developed, obese Psych: no complaints, nl mood/affect Head: normocephalic, atraumatic Eyes: nl conjunctiva, EOMI, nl lids, PERRL ENMT: nl external ears & nose, nl lips & teeth, nl nasal mucosa & septum, mucosa pink and moist Neck: supple, non-tender Respiratory: clear to auscultation, normal air movement; No congested cough, No crackles/rales, No diminished breath sounds, No intercostal retraction, No labored breathing, No respirations, No tactile fremitus, No wheezing, No other Cardiovascular: regular rate and rhythm, nl pulses; No bruits, No diastolic murmur, No edema, No gallop, No irregular rhythm, No jugular venous distention (JVD), No murmurs/extra sounds, No rub, No systolic murmur, No S3, No S4, No other Gastrointestinal: soft, nl liver, spleen, non-tender Extremities: other (right ankle pain) Neurological: OPERATIONS INSPECTOR II-XII intact, nl mental status, nl speech, nl strength Medications Medications Current Medications IV Flush (NS 3 ml) 3 ml PER PROTOCOL IV ; Start 07/26/18 at 04:30 Ondansetron HCl (Zofran Inj) 4 mg Q6H PRN IV NAUSEA AND/OR VOMITING; Start 07/26/18 at 04:30 Acetaminophen (Tylenol Tab) 650 mg Q6H PRN PO PAIN LEVEL 1-3 OR FEVER; Start 07/26/18 at 04:30 Acetaminophen/ Hydrocodone Bitart ([place] (5/325)) 1 tab Q6H PRN PO MODERATE PAIN LEVEL 4-6 Last administered on 07/27/18at 02:31; Admin Dose 1 TAB; Start 07/26/18 at 04:30 Acetaminophen/ Hydrocodone Bitart ([place] (5/325)) 2 tab Q6H PRN PO SEVERE PAIN LEVEL 7-10 Last administered on 07/26/18at 13:24; Admin Dose 2 TAB; Start 07/26/18 at 04:30 Heparin Sodium (Porcine) (Heparin (5000 Units/1ml)) 5,000 unit Q12 SC Last administered on 07/26/18at 20:27; Admin Dose 5,000 UNIT; Start 07/26/18 at 09:00 Albuterol/ Ipratropium (Duoneb) 3 ml Q2H RESP THERAPY PRN HHN SHORTNESS OF BREATH; Start 07/26/18 at 04:30 Diagnostic Test (Pha) (Accu-Chek) 1 ea 02 XX Last administered on 07/27/18at 02:31; Admin Dose 1 EA; Start 07/27/18 at 02:00 Insulin Aspart (Novolog Insulin Pen) NOVOLOG *MODERATE* ALGORITHM WITH MEALS BEDTIME SC Last administered on 07/27/18at 12:36; Admin Dose 2 UNIT; Start 07/26/18 at 07:50 Aspirin (Halfprin) 81 mg DAILY PO ; Start 07/26/18 at 09:00 Lisinopril (Zestril) 5 mg DAILY PO Last administered on 07/26/18at 09:07; Admin Dose 5 MG; Start 07/26/18 at 09:00 Miscellaneous Information 1 ea NOTE XX ; Start 07/26/18 at 05:30 Glucose (Glutose) 15 gm Q15M PRN PO DECREASED GLUCOSE; Start 07/26/18 at 05:30 Glucose (Glutose) 22.5 gm Q15M PRN PO DECREASED GLUCOSE; Start 07/26/18 at 05:30 Dextrose (D50w Syringe) 25 ml Q15M PRN IV DECREASED GLUCOSE; Start 07/26/18 at 05:30 Dextrose (D50w Syringe) 50 ml Q15M PRN IV DECREASED GLUCOSE; Start 07/26/18 at 05:30 Glucagon (Glucagen) 1 mg Q15M PRN IM DECREASED GLUCOSE; Start 07/26/18 at 05:30 Glucose (Glutose) 15 gm Q15M PRN BUCCAL DECREASED GLUCOSE; Start 07/26/18 at 05:30 Insulin Glargine (Lantus) 32 units BID@0800,2000 SC Last administered on 07/27/18at 09:38; Admin Dose 32 UNITS; Start 07/26/18 at 20:00 Insulin Aspart (Novolog Insulin Pen) 8 unit WITH MEALS SC ; Start 07/27/18 at 07:50 Sodium Chloride 1,000 ml @ 75 mls/hr [id number] IV Last administered on 07/27/18at 11:10; Admin Dose 75 MLS/HR; Start 07/27/18 at 09:30 Morphine Sulfate (morphine) 3 mg Q3H PRN IV SEVERE PAIN LEVEL 7-10 Last administered on 07/27/18at 12:34; Admin Dose 3 MG; Start 07/27/18 at 11:30 AGAPITO MARINO MD Jul 27, 2018 14:28
--- NOTE | 2018-07-27 16:00 | NUR ---
PT IS SLEEPING. NO DISTRESS. CALL LIGHT IN REACH. WILL CONT. MONITORING.
--- NOTE | 2018-07-27 17:10 | NUR ---
PT C/O PAIN LEVEL 9/10 IN HER BACK. NO PAIN MEDS ARE DUE AT THIS TIME. CALLED MADELIN ROACH OF DR. SAEED AND RECEIVED ORDERS FOR PAIN MEDS TO BE GIVEN EARLIER. WILL IMPLEMENT.
--- NOTE | 2018-07-27 17:25 | NUR ---
PT WAS MEDICATED FOR PAIN LEVEL 04/19. WILL CONT. MONITORING. PT REPORTED HAVING MORE PAIN AFTER PHYSICAL THERAPY. PT C/O NOT BEING ABLE TO DO STAIRS WITH PHYSICAL THERAPY TODAY, ALSO C/O NOT SLEEPING LAST NIGHT AT ALL DUE TO THE NOISE FROM HER ROOMMATE'S VISITORS LAST NIGHT. PT C/O FEELING WEAK. PT ADVISED TO CALL FOR ASSISTANCE. WILL CONT. MONITORING CLOSELY.
--- NOTE | 2018-07-27 18:30 | NUR ---
EOSS: PT'S HEMODYNAMICS AND RESPIR. STATUS ARE STABLE. NO COMPLICATIONS. NO CHANGES IN CONDITION. WILL CONT. MONITORING. WILL CONT. W/THE PLAN OF CARE. PT WAS TRANSFERRED TO THE PRIVATE ROOM EARLIER.
--- NOTE | 2018-07-27 20:15 | PREAC ---
Date/Time of Note Date/Time of Note DATE: 07/27/18 TIME: 20:14 Anesthesia Eval and Record Evaluation Time Pre-Procedure Interview DATE: 07/27/18 TIME: 20:14 Age 52 Sex female NPO: 8 hrs Preoperative diagnosis Right Ankle Fracture Planned procedure Right Ankle ORIF Past Medical History Past Medical History: Includes Cardio: HTN, Dyslipidemia Endo: Diabetes GI: Obesity Surgery & Anesthesia Issues No known issue Meds Anticoagulation: No Beta Andres within 24 hr: No Reason Beta Andres not given: Pt. not on B-Andres Reported Medications Insulin Glargine,Hum.rec.anlog (Tourejio Solostar) 300 Unit/1 Ml Insuln.pen, 30 UNIT SQ BID 01/27/17 Aspirin (Aspir-Low) 81 Mg Tablet.dr, 81 MG PO DAILY 01/27/17 Lisinopril* (Lisinopril*) 5 Mg Tablet, 5 MG PO DAILY, #30 TAB 01/27/17 Glipizide* (Glipizide*) 10 Mg Tablet, 20 MG PO AC BREAKFAST DINNER, TAB 01/27/17 Discontinued Scripts Levofloxacin* (Levofloxacin*) 750 Mg Tablet, 750 MG PO DAILY for 10 Days, TAB Prov:PHILIPP MORAN DO 01/27/17 Current Medications IV Flush (NS 3 ml) 3 ml PER PROTOCOL IV ; Start 07/26/18 at 04:30 Ondansetron HCl (Zofran Inj) 4 mg Q6H PRN IV NAUSEA AND/OR VOMITING; Start 07/26/18 at 04:30 Acetaminophen (Tylenol Tab) 650 mg Q6H PRN PO PAIN LEVEL 1-3 OR FEVER; Start 07/26/18 at 04:30 Acetaminophen/ Hydrocodone Bitart ([place] (5/325)) 1 tab Q6H PRN PO MODERATE PAIN LEVEL 4-6 Last administered on 07/27/18at 02:31; Admin Dose 1 TAB; Start 07/26/18 at 04:30 Acetaminophen/ Hydrocodone Bitart ([place] (5/325)) 2 tab Q6H PRN PO SEVERE PAIN LEVEL 7-10 Last administered on 07/26/18at 13:24; Admin Dose 2 TAB; Start 07/26/18 at 04:30 Heparin Sodium (Porcine) (Heparin (5000 Units/1ml)) 5,000 unit Q12 SC Last administered on 07/26/18at 20:27; Admin Dose 5,000 UNIT; Start 07/26/18 at 09:00 Albuterol/ Ipratropium (Duoneb) 3 ml Q2H RESP THERAPY PRN HHN SHORTNESS OF BREATH; Start 07/26/18 at 04:30 Diagnostic Test (Pha) (Accu-Chek) 1 ea 02 XX Last administered on 07/27/18at 02:31; Admin Dose 1 EA; Start 07/27/18 at 02:00 Insulin Aspart (Novolog Insulin Pen) NOVOLOG *MODERATE* ALGORITHM WITH MEALS BEDTIME SC Last administered on 07/27/18at 12:36; Admin Dose 2 UNIT; Start 07/26/18 at 07:50 Aspirin (Halfprin) 81 mg DAILY PO ; Start 07/26/18 at 09:00 Lisinopril (Zestril) 5 mg DAILY PO Last administered on 07/26/18at 09:07; Admin Dose 5 MG; Start 07/26/18 at 09:00 Miscellaneous Information 1 ea NOTE XX ; Start 07/26/18 at 05:30 Glucose (Glutose) 15 gm Q15M PRN PO DECREASED GLUCOSE; Start 07/26/18 at 05:30 Glucose (Glutose) 22.5 gm Q15M PRN PO DECREASED GLUCOSE; Start 07/26/18 at 05:30 Dextrose (D50w Syringe) 25 ml Q15M PRN IV DECREASED GLUCOSE; Start 07/26/18 at 05:30 Dextrose (D50w Syringe) 50 ml Q15M PRN IV DECREASED GLUCOSE; Start 07/26/18 at 05:30 Glucagon (Glucagen) 1 mg Q15M PRN IM DECREASED GLUCOSE; Start 07/26/18 at 05:30 Glucose (Glutose) 15 gm Q15M PRN BUCCAL DECREASED GLUCOSE; Start 07/26/18 at 05:30 Insulin Aspart (Novolog Insulin Pen) 8 unit WITH MEALS SC ; Start 07/27/18 at 07:50 Sodium Chloride 1,000 ml @ 75 mls/hr [id number] IV Last administered on 07/27/18at 11:10; Admin Dose 75 MLS/HR; Start 07/27/18 at 09:30 Morphine Sulfate (morphine) 3 mg Q3H PRN IV SEVERE PAIN LEVEL 7-10 Last administered on 07/27/18at 12:34; Admin Dose 3 MG; Start 07/27/18 at 11:30 Insulin Glargine (Lantus) 34 units BID@0800,2000 SC ; Start 07/27/18 at 20:00 Meds reviewed: Yes Allergies Coded Allergies: No Known Allergy (Unverified , 07/26/18) Allergies Reviewed: Yes Labs/Studies Labs Reviewed: Reviewed by anesthesiologist Result Diagram: 07/27/18 0452 07/27/18 0452 Laboratory Tests 07/27/18 04:52 test: Negative Studies: ECG (n/a), CXR (n/a) Pre-procedure Exam Last vitals Vital Signs Date Temp Pulse Resp B/P (MAP) Pulse Ox O2 O2 Flow FiO2 Time Delivery Rate 07/27/18 98.3 93 18 113/59 96 14:36 (77) 07/26/18 Room Air 08:13 Airway: Adequate mouth opening, Adequate thyromental dist Mallampati: Mallampati II Teeth: Normal Lung: Normal Heart: Normal ASA Physical Status ASA physical status: 3 Emergency: E Planned Anesthetic General/MAC: ETT Nerve block: Femoral (right), Sciatic (right) Planned Pain Management Single shot nerve block Pre-operative Attestations Prior to commencing anesthesia and surgery, the patient was re-evaluated, there was verification of: *The patient's identity *The results of appropriate recent lab work and preoperative vital signs *The above evaluation not changing prior to induction *Anesthetic plan, risk benefits, alternative and complications discussed with patient/family; questions answered; patient/family understands, accepts and wis hes to proceed. ARIELLA BLAND MD Jul 27, 2018 20:15
--- NOTE | 2018-07-27 20:18 | HPN ---
Date/Time of Note Date/Time of Note DATE: 07/27/18 TIME: 20:18 Interval H&P Admission Note Pt. seen H&P reviewed: No system changes MITCHELL MONROE MD Jul 27, 2018 20:18
[2018-07-27] MEDS ORDERED: ROPIVACAINE 0.5 % 30 ML VIAL ONE (20:22)
[2018-07-27] MEDS ORDERED: MIDAZOLAM 1 MG/ML 2 ML INJ ONE (20:22)
[2018-07-27] MEDS ORDERED: PROPOFOL 20 ML ONE (20:22)
[2018-07-27] MEDS ORDERED: ROCURONIUM 50 MG INJ ONE (20:22)
[2018-07-27] MEDS ORDERED: CEFAZOLIN 1 GM INJ ONE (20:22)
[2018-07-27] MEDS ORDERED: FENTAnyl 50 MCG/ML VIAL IV PRN ×3 (20:30)
[2018-07-27] MEDS ORDERED: hydrALAzine 20 MG INJ IV PRN (20:30)
[2018-07-27] MEDS ORDERED: HYDROmorphONE 1 MG/5 ML IV SYRINGE IV PRN ×3 (20:30)
[2018-07-27] MEDS ORDERED: OXYCODONE/ACETAMINOPHEN (5/325) TAB PO PRN ×2 (20:30)
[2018-07-27] MEDS ORDERED: ONDANSETRON 4 MG INJ IV PRN (20:30)
[2018-07-27] MEDS ORDERED: EPHEDrine SULFATE 50 MG/5 ML SYG IV PRN (20:30)
[2018-07-27] MEDS ORDERED: MEPERIDINE 25 MG INJ IV PRN (20:30)
[2018-07-27] MEDS ORDERED: METOCLOPRAMIDE 10 MG INJ IV PRN (20:30)
[2018-07-27] MEDS ORDERED: DIPHENHYDRAMINE 50 MG INJ IV PRN (20:30)
[2018-07-27] MEDS ORDERED: LABETALOL HCL 20MG INJ IV PRN (20:30)
[2018-07-27] MEDS ORDERED: ONDANSETRON 4 MG INJ ONE (21:09)
[2018-07-27] MEDS ORDERED: DEXAMETHASONE 4 MG/ML 5 ML INJ ONE (21:10)
[2018-07-27] MEDS ORDERED: KETOROLAC 30 MG INJ ONE (21:10)
[2018-07-27] MEDS ORDERED: METOCLOPRAMIDE 10 MG INJ ONE (21:10)
--- NOTE | 2018-07-27 21:49 | RADRPT ---
Vent Rate: 77 bpm RR Interval: 0 msec MT Interval: 144 msec QRS Duration: 82 msec QT Interval: 378 msec QTC Interval: 427 msec P-R-T [place]: 48 - 30 - 47 degrees Normal sinus rhythm Cannot rule out Anterior infarct , age undetermined Abnormal ECG Electronically Signed By: Reji Doan [id number]
[2018-07-27] MEDS ORDERED: NEOSTIGMINE 3 MG/3 ML SYRINGE ONE (22:47)
[2018-07-27] MEDS ORDERED: GLYCOPYRROLATE 1 MG INJ ONE (22:47)
[2018-07-27] MEDS ORDERED: LABETALOL HCL 20MG INJ ONE (22:52)
[2018-07-27] MEDS: SOD CHLORIDE 0.9% 1,000 ML IV SCH (23:02)
--- NOTE | 2018-07-27 23:16 | PAC ---
Date/Time of Note Date/Time of Note DATE: 07/27/18 TIME: 23:15 Post-Anesthesia Notes Post-Anesthesia Note Last documented vital signs Vital Signs Date Temp Pulse Resp B/P (MAP) Pulse Ox O2 O2 Flow FiO2 Time Delivery Rate 07/27/18 98.3 93 18 113/59 96 face mask 8 L 23:36 (77) 07/26/18 Room Air 08:13 Activity: WNL Respiratory function: WNL Cardiovascular function: WNL Mental status: Baseline Pain reasonably controlled: Yes Hydration appropriate: Yes Nausea/Vomiting absent: Yes ARIELLA BLAND MD Jul 27, 2018 23:16
--- NOTE | 2018-07-27 23:16 | SIPON ---
Date/Time of Note Date/Time of Note DATE: 07/27/18 TIME: 23:12 Operative Report Preoperative Diagnosis bimalleolar fracture of Rt. ankle Postoperative Diagnosis same Operation/Procedure Performed O.R.I.F. of Rt. ankle fracture Surgeon see signature line ex assistant/program director none Anesthesia: general Estimated blood loss: 10 - 50 ml's Transfusion Required none Specimen none Grafts/Implants plate and screwsnone Complications none MITCHELL MONROE MD Jul 27, 2018 23:16
[2018-07-27] MEDS ORDERED: HYDROCODONE/APAP (5/325) TAB PO PRN (23:30)
[2018-07-27] MEDS ORDERED: morphine 4 MG/ML VIAL IV PRN (23:30)
[2018-07-27] MEDS ORDERED: NACL 0.9% 3 ML SYG IV SCH (23:30)
[2018-07-27] MEDS: CEFAZOLIN 1 GM/50 ML (PMX) 50 ML IVPB SCH (23:37)
[2018-07-28] VITALS (12 sets, daily range): BP systolic 121–151; BP diastolic 55–70; PULSE 86–98; RESP 2–20
--- NOTE | 2018-07-28 00:21 | OPR ---
DATE OF OPERATION: 07/27/2018 PREOPERATIVE DIAGNOSIS: Bimalleolar fracture of the right ankle. POSTOPERATIVE DIAGNOSIS: Bimalleolar fracture of the right ankle. PROCEDURE PERFORMED: Open reduction and internal fixation of the bimalleolar fracture of the right a nkle. ANESTHESIA: General anesthesia. SURGEON: Kelley Monroe MD PROCEDURE AND FINDINGS: Under general anesthesia, the patient was placed in supine position upon the operating table. Usual prep and drape was done exposing the right ankle. A tourniquet was placed o rafita the proximal portion of the right thigh and was inflated up to 300 mmHg prior to the procedure. Lateral malleolus was approached through the lateral longitudinal incision. After exposing the obvio us fracture involving the lateral malleolus, manipulative reduction was carried out and then the redu alfredo bone was held with bone clamp and internal fixation was carried out utilizing 6-hole plate for la teral malleolus. After satisfactory reduction of the lateral malleolus, attention was directed to th e medial side. Through an oblique incision, medial malleolar fracture was exposed and with some diff iculties, this was reduced and was held reduced with the bone clamp and internal fixation was carried out using 4.0 cannulated screws in the size of 50. At the end of the procedure, alignment of the fr acture was satisfactory and position of the fixation device was proper. After irrigation and hemosta sis, closure of the incision was carried out using 0 Vicryl for muscle and fascia and 2-0 Vicryl for subcutaneous tissues. Final skin closure was carried out with skin bernie. The usual sterile pressure dressings were appl ied. The patient tolerated the entire procedure very well and was sent to the recovery room in excellent c ondition. Dictated By: KELLEY MONROE MD IK/NTS Conf#: [id number] DID#: [id number] CC: ALETHA ALVAREZ MD;*EndCC*
[2018-07-28] MEDS: INSULIN GLARGINE [LANTus] (100 UNITS/ML) SYG SC SCH ×3 (01:10→20:35)
[2018-07-28] MEDS: INSULIN ASPART [NOVOLOG] 3 ML PEN SC SCH ×8 (01:16→20:39)
[2018-07-28] MEDS: ACCU-CHEK XX SCH (01:22)
--- NOTE | 2018-07-28 01:30 | NUR ---
PT. HAS CAME FROM SX TO THE SAME ROOM; VS IS WNL;PT. A AND O X 4; NO N/V WAS NOTED; PT.DOESN'T COMPLAINED OF PAIN THAT TIME; DR. ALVAREZ WAS CALLED REGARDING PT'S SLIDING SCALE TO BE GIVEN ALONG WITH LANTUS, 34 UNITS. ; PT'S BS IS 257. ACCORDING DR"S ORDER, BOTH INSULINS HAD BEEN GIVEN. WILL CLOSELY MONITOR THE PT. AND CONTINUE WITH A PLAN OF CARE.
--- NOTE | 2018-07-28 04:35 | NUR ---
END OF SHIFT NOTE: PATIENT IS A AND O X 4; NOT IN DISTRESS. VS IS WNL; ALL MEDICATIONS HAVE BEEN GIVEN ORDERED AND PRN; ALL NEEDS ATTENDED; CALL LIGHT WITHIN REACH ; WILL ENDORSE TO THE DAY SHIFT RN
[2018-07-28] MEDS: SOD CHLORIDE 0.9% 1,000 ML IV SCH ×3 (04:44→19:02)
--- NOTE | 2018-07-28 08:08 | NUR ---
Glycemic Management: R: Consider increasing pt's PM basal dose or adding an PM dose of NPH 10 units. If pt's medication reconciliation is correct, pt took a PM dose of Glipizide 10 mg on top of Toujeo 30 unit PM. Consider also starting Metformin 500 mg BID. Will attempt to follow up with pt at bedside.
--- NOTE | 2018-07-28 08:45 | NUR ---
Per chart review, pt to be WBAT with CAM boot, spoke to RN, CAM boot ordered but has not been delivered will contact PT when arrives. Patient reports living in 2nd level apartment with daughters and . No previous DME required and mod I with mobility. No DME available. To follow up once CAM boot obtained, RN and patient aware and agreeable
[2018-07-28] MEDS: CEFAZOLIN 1 GM/50 ML (PMX) 50 ML IVPB SCH ×2 (08:46→16:20)
[2018-07-28] MEDS: ASPIRIN (EC) 81 MG TAB PO SCH (08:58)
[2018-07-28] MEDS: LISINOPRIL 5 MG TAB PO SCH (08:58)
[2018-07-28] MEDS: ENOXAPARIN 40 MG/0.4 ML SYG SC SCH (10:40)
[2018-07-28] MEDS: HYDROCODONE/APAP (5/325) TAB PO PRN (10:49)
--- NOTE | 2018-07-28 11:00 | NUR ---
PT evaluation attempted, RN states ROMY thurman present at bedside, diabetes educators present at bedside states will require "about 30 minutes" will follow up in PM for PT evaluation
[2018-07-28] MEDS: SOD CHLORIDE 0.45% 1,000 ML IV SCH (12:10)
--- NOTE | 2018-07-28 12:30 | NUR ---
Diabetes Education: R: Upon discharge, pt will require RX for test strips 150/month; Lantus and Humalog vials. HbA1c 11.1%; 98kg; BMI 36; Cr 0.55; Admitting serum glucose 311 mg/dl Pt stated she has had DM since her last , approximately 14 years ago. Pt stated she has a sister and brother with DM. Pt stated prior to this admission she was taking Glipizide 10 mg BID (9:30am and 4:30 pm) and Toujeo 30 unit BID. Pt stated her clinic ([facility]) told her to check her FBG 3 times a week (M/W/). Pt claims her FBG is usually 90-160s, rarely in the 200s mg/dl. With the use of oracle hrms developer (Jennie) and handouts discussed at length with patient at bedside how diabetes works in the body, where the glucose comes from, how food breaks down into glucose, and how different medications (Toujeo, Glipizide & Humalog) work. Reviewed glucose targets (pre and post meal), reviewed the different food groups and when/how to manage glucose by adjusting the carbohydrates and proteins. Pt verbalized she would have to think about checking her BG more, giving herself more insulin and changing her food. Pt was concerned about going hungry if she can't eat carbohydrates and concerned with more poking. Reviewed signs and symptoms of hypoglycemia, which pt denied having nocturnal hypoglycemia. Discussed timing of the insulins, locations of administration, to rotate the administration site, proper storage of the insulin, and to never inject insulin cold. Resources were given to pt for future follow up. All questions answered. Pt appeared hesitant in continuing the discussion.
--- NOTE | 2018-07-28 13:25 | NUR ---
PT evaluation Therapy day number 1 Evaluation Start Time 13:25 Evaluation End Time 14:20 Evaluation Total Time 55 min Subjective Current complaint of pain Pain Scale NUMERIC Pain Intensity 8 (0-10) Patient Stated Goal for Pain Relief 0 (0-10) Pain Level Comment patient premedicated prior to PT Pre Treatment Vital Signs Stable Yes Supine to Sit Supervised Transfer Sit to Stand Ability Minimum Assist Bed Mobility Sit to Supine Supervised Bed Transfer Ability Supervised Chair Transfer Ability Supervised Additional Mobility Comments requires extra time Gait Assist Levels Stand by Assist Assistive Devices Front Wheel Walker Ambulation Distance 20 feet Additional Gait Comments SBA with FWW, slow kaity, but improving weight bearing with gait Weight Bearing Assessment Label Right Lower Extremity Weight Bearing Status Weight Bearing as Chhaya Additional Weight Bearing Comments with CAM boot Static Sitting Balance Good Dynamic Sitting Balance Good Standing Static Balance Fair Dynamic Standing Balance Fair Safety Judgement Good Activity Tolerance Fair Equipment Present A pump IV pump Additional Equipment Present with CAM boot Post Treatment Pain Intensity 7 0-10 Additional Post Treatment Comment See note Total Minutes 55 Total Units 4 PT Technical Record Comment 52 yo female presents s/p fall sustaining trimalleolar fractures with tibiotalar subluxation now s/p ORIF R ankle PMH includes HTN and diabetes Precaution: WBAT RLE with CAM boot, fall risk PLOF: Patient previously independent with no AD, lives in 2nd floor apartment with and daughters who are gone during the day S: Patient in bed, agreeable to PT evaluation with mild encouragement. Pt cleared for PT per RN O: PT evaluation completed, pt returned back to bed following therapy intervention with call light within reach and bed alarm activated. Spoke to RN regarding pt response to activity and PT plan of care. No reports of dizziness, or shortness of breath with activity, pain with weight bearing. Patient may ambulate with nursing with FWW assist. A: Pt presents with fair mobility with use of FWW, limited secondary to fear and pain. Patient hesistant to weight bear through RLE but improved with increasing gait endurance. Patient fatigues quickly but receptive to PT education and motivated to improve. Patient occasionally performing mobility with NWB hop to gait. Patient could benefit from continued skilled therapy intervention to improve strength, endurance, and functional mobility. P progress gait training, stair training as appropriately Recommendation: pt will require FWW for safe mobility, Likely will require assist with stair training, pt may benefit from HHPT when medically cleared by
[2018-07-28] MEDS: morphine 4 MG/ML VIAL IV PRN ×2 (13:37→22:19)
--- NOTE | 2018-07-28 14:45 | PN ---
Date/Time of Note Date/Time of Note DATE: 07/28/18 TIME: 14:43 Assessment/Plan VTE Prophylaxis Risk score (from Ns)>0 risk: 8 SCD applied (from Ns): Yes Pharmacological prophylaxis: heparin Lines/Catheters IV Catheter Type (from Nrsg): Peripheral IV Assessment/Plan Assessment/Plan 1. Right malleolar fracture: Status post mechanical fall, planned for surgery today 2. Hypertension, controlled 3. Diabetes with hyperglycemia, lantus and ISS 4. Obesity with a BMI of 36: Weight reduction advised 5. DVT prophylaxis: heparin Result Diagram: 07/28/184 07/28/184 Results 24hrs Laboratory Tests Test 07/27/18 18:00 07/27/18 23:15 07/28/18 01:05 07/28/18 04:44 Bedside Glucose 142 228 H 257 H White Blood Count 12.1 #H Red Blood Count 4.29 Hemoglobin 12.4 Hematocrit 37.7 Mean Corpuscular 87.9 Volume Mean Corpuscular 28.9 L Hemoglobin Mean Corpuscular 32.9 Hemoglobin Concent Red Cell 13.0 Distribution Width Platelet Count 207 Mean Platelet Volume 10.9 H Immature 0.700 H Granulocytes % Neutrophils % 88.4 H Lymphocytes % 9.1 L Monocytes % 1.6 Eosinophils % 0.0 Basophils % 0.2 Nucleated Red Blood 0.0 Cells % Immature 0.080 H Granulocytes # Neutrophils # 10.7 H Lymphocytes # 1.1 Monocytes # 0.2 L Eosinophils # 0.0 Basophils # 0.0 Nucleated Red Blood 0.0 Cells # Sodium Level 137 Potassium Level 4.6 Chloride Level 103 Carbon Dioxide Level 25 Anion Gap 9 Blood Urea Nitrogen 15 Creatinine 0.55 Est Glomerular > 60 Filtrat Rate mL/min Glucose Level 353 H Calcium Level 8.8 Test 07/28/18 08:44 07/28/18 12:40 Bedside Glucose 291 H 258 H Subjective 24 Hr Interval Summary Free Text/Dictation right ankle pain Exam/Review of Systems Vital Signs Vitals Vital Signs Date Temp Pulse Resp B/P (MAP) Pulse Ox O2 O2 Flow FiO2 Time Delivery Rate 07/28/18 98.0 98 18 135/61 98 Nasal 2.0 07:37 (85) Cannula Intake and Output 07/27/18 07/27/18 07/28/18 1414:59 22:59 06:59 IntakeIntake Total 450 ml 2730 ml OutputOutput Total 700 ml 350 ml 500 ml BalanceBalance -700 ml 100 ml 2230 ml Exam Constitutional: alert, oriented, well developed Psych: no complaints, nl mood/affect Head: normocephalic, atraumatic Eyes: nl conjunctiva, EOMI, nl lids, nl sclera, PERRL ENMT: nl external ears & nose, nl lips & teeth, nl nasal mucosa & septum Neck: supple, non-tender Respiratory: clear to auscultation, normal air movement; No congested cough, No crackles/rales, No diminished breath sounds, No intercostal retraction, No labored breathing, No respirations, No tactile fremitus, No wheezing, No other Cardiovascular: regular rate and rhythm, nl pulses; No bruits, No diastolic murmur, No edema, No gallop, No irregular rhythm, No jugular venous distention (JVD), No murmurs/extra sounds, No rub, No systolic murmur, No S3, No S4, No other Gastrointestinal: soft, nl liver, spleen, non-tender Musculoskeletal: nl extremities to inspection Extremities: other (right ankle pain) Neurological: MACHINE GUNNER II-XII intact, nl mental status, nl speech, nl strength Medications Medications Current Medications IV Flush (NS 3 ml) 3 ml PER PROTOCOL IV ; Start 07/26/18 at 04:30 Ondansetron HCl (Zofran Inj) 4 mg Q6H PRN IV NAUSEA AND/OR VOMITING; Start at 04:30 Acetaminophen (Tylenol Tab) 650 mg Q6H PRN PO PAIN LEVEL 1-3 OR FEVER; Start 07/26/18 at 04:30 Acetaminophen/ Hydrocodone Bitart ([place] (5/325)) 1 tab Q6H PRN PO MODERATE PAIN LEVEL 4-6 Last administered on 07/27/18at 02:31; Admin Dose 1 TAB; Start 07/26/18 at 04:30 Acetaminophen/ Hydrocodone Bitart ([place] (5/325)) 2 tab Q6H PRN PO SEVERE PAIN LEVEL 7-10 Last administered on 07/28/18at 10:49; Admin Dose 2 TAB; Start 07/26/18 at 04:30 Albuterol/ Ipratropium (Duoneb) 3 ml Q2H RESP THERAPY PRN HHN SHORTNESS OF BREATH; Start 07/26/18 at 04:30 Diagnostic Test (Pha) (Accu-Chek) 1 ea 02 XX Last administered on 07/27/18at 02:31; Admin Dose 1 EA; Start 07/27/18 at 02:00 Insulin Aspart (Novolog Insulin Pen) NOVOLOG *MODERATE* ALGORITHM WITH MEALS BEDTIME SC Last administered on 07/28/18at 12:43; Admin Dose 6 UNIT; Start 07/26/18 at 07:50 Aspirin (Halfprin) 81 mg DAILY PO Last administered on 07/28/18at 08:58; Admin Dose 81 MG; Start 07/26/18 at 09:00 Lisinopril (Zestril) 5 mg DAILY PO Last administered on 07/28/18at 08:58; Admin Dose 5 MG; Start 07/26/18 at 09:00 Miscellaneous Information 1 ea NOTE XX ; Start 07/26/18 at 05:30 Glucose (Glutose) 15 gm Q15M PRN PO DECREASED GLUCOSE; Start 07/26/18 at 05:30 Glucose (Glutose) 22.5 gm Q15M PRN PO DECREASED GLUCOSE; Start 07/26/18 at 05:30 Dextrose (D50w Syringe) 25 ml Q15M PRN IV DECREASED GLUCOSE; Start 07/26/18 at 05:30 Dextrose (D50w Syringe) 50 ml Q15M PRN IV DECREASED GLUCOSE; Start 07/26/18 at 05:30 Glucagon (Glucagen) 1 mg Q15M PRN IM DECREASED GLUCOSE; Start 07/26/18 at 05:30 Glucose (Glutose) 15 gm Q15M PRN BUCCAL DECREASED GLUCOSE; Start 07/26/18 at 05:30 Insulin Aspart (Novolog Insulin Pen) 8 unit WITH MEALS SC Last administered on 07/28/18at 12:42; Admin Dose 8 UNIT; Start 07/27/18 at 07:50 Sodium Chloride 1,000 ml @ 75 mls/hr [id number] IV Last administered on 07/27/18at 11:10; Admin Dose 75 MLS/HR; Start 07/27/18 at 09:30 Morphine Sulfate (morphine) 3 mg Q3H PRN IV SEVERE PAIN LEVEL 7-10 Last administered on 07/28/18at 13:37; Admin Dose 3 MG; Start 07/27/18 at 11:30 Insulin Glargine (Lantus) 34 units BID@0800,2000 SC Last administered on 07/28/18at 12:44; Admin Dose 34 UNITS; Start 07/27/18 at 20:00 Cefazolin Sodium 50 ml @ 100 mls/hr Q8H IVPB Last administered on 07/28/18at 08:46; Admin Dose 100 MLS/HR; Start 07/27/18 at 23:30; Stop 07/28/18 at 15:59 IV Flush (NS 3 ml) 3 ml PER PROTOCOL IV ; Start 07/27/18 at 23:30 Sodium Chloride 1,000 ml @ 100 mls/hr Q10H IV Last administered on 07/28/18at 04:44; Admin Dose 100 MLS/HR; Start 07/27/18 at 23:02 Enoxaparin Sodium (Lovenox) 40 mg DAILY SC Last administered on 07/28/18at 10:40; Admin Dose 40 MG; Start 07/28/18 at 09:00 Morphine Sulfate (morphine) 3 mg Q3H PRN IV SEVERE PAIN LEVEL 7-10; Start 07/27/18 at 23:30 Acetaminophen/ Hydrocodone Bitart ([place] (5/325)) 1 tab Q3H PRN PO MODERATE PAIN LEVEL 4-6; Start 07/27/18 at 23:30 AGAPITO MARINO MD Jul 28, 2018 14:45
--- NOTE | 2018-07-28 18:38 | NUR ---
EOSS: Patient with no s/s of hyperglycemia during the shift. Ambulated by PT, tolerated well. Medicated 2x with norco 2 tabs and morphine IV, with relief. coding educator met patient this morning. Kept comfortable. Call light within reach. Needs attended.
[2018-07-29] MEDS: SOD CHLORIDE 0.45% 1,000 ML IV SCH (01:30)
[2018-07-29 02:00] VITALS: BP 125/59; PULSE 103; RESP 20
[2018-07-29] MEDS: ACCU-CHEK XX SCH ×2 (02:00→21:26)
[2018-07-29] MEDS: HYDROCODONE/APAP (5/325) TAB PO PRN ×4 (02:54→21:54)
[2018-07-29 05:00] VITALS: BP 131/61; PULSE 89; RESP 18
[2018-07-29] MEDS: SOD CHLORIDE 0.9% 1,000 ML IV SCH (05:02)
[2018-07-29 07:53] VITALS: BP 119/56; PULSE 93; RESP 18
[2018-07-29] MEDS: INSULIN ASPART [NOVOLOG] 3 ML PEN SC SCH ×7 (08:40→21:00)
[2018-07-29] MEDS: INSULIN GLARGINE [LANTus] (100 UNITS/ML) SYG SC SCH ×2 (08:42→21:25)
[2018-07-29] MEDS: ENOXAPARIN 40 MG/0.4 ML SYG SC SCH (08:42)
[2018-07-29] MEDS: LISINOPRIL 5 MG TAB PO SCH (08:45)
[2018-07-29] MEDS: ASPIRIN (EC) 81 MG TAB PO SCH (08:46)
--- NOTE | 2018-07-29 09:30 | NUR ---
PT NOTE [facility] Patient: July Laughlin : 1965 Age/Sex: 52/F Unit#: [id number] Room/Bed: 408/A User: Elsy Michelle PTA Date: 07/29/18 09:30 Type: PT Technical Record Therapy day number 2 Subjective Current complaint of pain Pain Scale NUMERIC Pain Intensity 5 (0-10) Patient Stated Goal for Pain Relief 0 (0-10) Pain Level Comment RLE, premedicated Transfer Training Start Time 08:45 Supine to Sit Independent Transfer Sit to Stand Ability Supervised Bed Mobility Sit to Supine Independent Transfer Training End Time 09:03 Total Transfer Training Time 18 min (8-127) Gait Training Start Time 09:03 Gait Assist Levels Supervised Assistive Devices Front Wheel Walker Ambulation Distance 60 feet Additional Gait Comments antalgic gait and step to pattern Gait Training End Time 09:30 Total Gait Training Treatment Time 27 min (8-127) Weight Bearing Assessment Label Right Lower Extremity Weight Bearing Status Weight Bearing as Chhaya Additional Weight Bearing Comments R cam boot Static Sitting Balance Good Dynamic Sitting Balance Good Standing Static Balance Good Dynamic Standing Balance Fair plus Additional Balance Assessments Comments FWW Safety Judgement Good Activity Tolerance Good Equipment Present A pump Additional Equipment Present R cam boot Post Treatment Pain Intensity 5 0-10 Total Treament Time 45 min (8-127) Total Minutes 45 Total Units 3 PT Technical Record Comment S: RN Jazz cleared pt for PT. Pt c/o 5/10 RLE and was premedicated. Agreeable to tx O: Received pt in bed w/ HOB elevated. See above for assist levels. ModA don/doff RLE cam boot. Gait training x 60' and presented with antalgic gait and step to pattern. Returned pt back to room/bed. Positioned pt to comfort in bed w/ HOB elevated and RLE elevated on pillow. Needs met. Informed RN of pt status and PT activities A: Good tolerance to tx. Improved gait distance. SBA to Supervised during gait training P: Continue w/ POC and progress as tolerated
--- NOTE | 2018-07-29 11:40 | PN ---
Date/Time of Note Date/Time of Note DATE: 07/29/18 TIME: 11:40 Objective Vitals Vital Signs Date Temp Pulse Resp B/P (MAP) Pulse Ox O2 O2 Flow FiO2 Time Delivery Rate 07/29/18 98.6 93 18 119/56 100 Room Air 07:53 (77) 07/28/18 2.0 07:37 Intake and Output 07/28/18 07/28/18 07/29/18 1414:59 22:59 06:59 IntakeIntake Total 250 ml 1500 ml OutputOutput Total 500 ml 400 ml BalanceBalance 250 ml 1000 ml -400 ml Results Result Diagram: 07/29/187 07/29/18446 Medications Medications Current Medications IV Flush (NS 3 ml) 3 ml PER PROTOCOL IV ; Start 07/26/18 at 04:30 Ondansetron HCl (Zofran Inj) 4 mg Q6H PRN IV NAUSEA AND/OR VOMITING; Start 07/26/18 at 04:30 Acetaminophen (Tylenol Tab) 650 mg Q6H PRN PO PAIN LEVEL 1-3 OR FEVER; Start 07/26/18 at 04:30 Acetaminophen/ Hydrocodone Bitart ([place] (5/325)) 1 tab Q6H PRN PO MODERATE PAIN LEVEL 4-6 Last administered on 07/27/18at 02:31; Admin Dose 1 TAB; Start 07/26/18 at 04:30 Acetaminophen/ Hydrocodone Bitart ([place] (5/325)) 2 tab Q6H PRN PO SEVERE PAIN LEVEL 7-10 Last administered on 07/29/18at 08:52; Admin Dose 2 TAB; Start 07/26/18 at 04:30 Albuterol/ Ipratropium (Duoneb) 3 ml Q2H RESP THERAPY PRN HHN SHORTNESS OF BREATH; Start 07/26/18 at 04:30 Diagnostic Test (Pha) (Accu-Chek) 1 ea 02 XX Last administered on 07/27/18at 02:31; Admin Dose 1 EA; Start 07/27/18 at 02:00 Insulin Aspart (Novolog Insulin Pen) NOVOLOG *MODERATE* ALGORITHM WITH MEALS BEDTIME SC Last administered on 07/29/18at 08:40; Admin Dose 6 UNIT; Start 07/26/18 at 07:50 Aspirin (Halfprin) 81 mg DAILY PO Last administered on 1/19/19at 08:46; Admin Dose 81 MG; Start 07/26/18 at 09:00 Lisinopril (Zestril) 5 mg DAILY PO Last administered on 07/29/18at 08:45; Admin Dose 5 MG; Start 07/26/18 at 09:00 Miscellaneous Information 1 ea NOTE XX ; Start 07/26/18 at 05:30 Glucose (Glutose) 15 gm Q15M PRN PO DECREASED GLUCOSE; Start 07/26/18 at 05:30 Glucose (Glutose) 22.5 gm Q15M PRN PO DECREASED GLUCOSE; Start 07/26/18 at 05:30 Dextrose (D50w Syringe) 25 ml Q15M PRN IV DECREASED GLUCOSE; Start 07/26/18 at 05:30 Dextrose (D50w Syringe) 50 ml Q15M PRN IV DECREASED GLUCOSE; Start 07/26/18 at 05:30 Glucagon (Glucagen) 1 mg Q15M PRN IM DECREASED GLUCOSE; Start 07/26/18 at 05:30 Glucose (Glutose) 15 gm Q15M PRN BUCCAL DECREASED GLUCOSE; Start 07/26/18 at 05:30 Morphine Sulfate (morphine) 3 mg Q3H PRN IV SEVERE PAIN LEVEL 7-10 Last administered on 07/28/18at 22:19; Admin Dose 3 MG; Start 07/27/18 at 11:30 IV Flush (NS 3 ml) 3 ml PER PROTOCOL IV ; Start 07/27/18 at 23:30 Enoxaparin Sodium (Lovenox) 40 mg DAILY SC Last administered on 07/29/18at 08:42; Admin Dose 40 MG; Start 07/28/18 at 09:00 Morphine Sulfate (morphine) 3 mg Q3H PRN IV SEVERE PAIN LEVEL 7-10; Start 07/27/18 at 23:30 Acetaminophen/ Hydrocodone Bitart ([place] (5/325)) 1 tab Q3H PRN PO MODERATE PAIN LEVEL 4-6; Start 07/27/18 at 23:30 Insulin Aspart (Novolog Insulin Pen) 10 unit WITH MEALS SC Last administered on 07/29/18at 08:41; Admin Dose 10 UNIT; Start 07/28/18 at 17:55 Insulin Glargine (Lantus) 36 units BID@0800,2000 SC Last administered on 07/29/18at 08:42; Admin Dose 36 UNITS; Start 07/28/18 at 20:00 VTE Prophylaxis Risk score (from Ns)>0 risk: 7 SCD applied (from Ns): Yes Lines/Catheters IV Catheter Type: Sinha in Place: No Assessment/Plan Hospital Course Subjective Patient doing well, minimal pain in right ankle surgical site Objective Physical exam General: Patient is laying in bed and answers questions appropriately Mentation: Patient is alert and oriented 4, Head: Normocephalic atraumatic Eyes: EOMI, pupils reactive to light Neck: Supple, nontender, midline Respiratory: Clear to auscultation bilaterally Cardiovascular: regular rate, no obvious murmurs Gastrointestinal: non-tender to palpation, bowel sounds heard. Neurological: Moves all extremities spontaneously Skin: Right ankle surgical site bandaged, CDI Assessment and plan Right malleolar fracture -Status post ORIF of the right ankle -Patient doing well -PT OT Hypertension -Adjust as needed Uncontrolled diabetes -Patient's A1c does not signify good control -Adjust Lantus and insulin sliding scale as needed -Patient will need to follow-up with her outpatient physician to continue to adjust her diabetes medications, appears patient is on glipizide as well as L antus, may need insulin with meals Disposition -Monitor glucose, continue current management, case management consulted for front wheel walker at home health PT. Possible DC tomorrow JACQUELINE HOPE Jul 29, 2018 11:40
--- NOTE | 2018-07-29 12:30 | NUR ---
ORDER FOR FWW FAXED ORDER TO [facility] [phone] FAXED TO [facility] [phone] OBTAINED FWW FROM [facility] AND DELIVERED TO PATIENTS ROOM. Addendum: 07/29/18 at 1311 by MONIQUE WALTON RN CM ERROR IN ABOVE CHARTING REGARDING [facility]. PATIENT HAS RESTRICTED MEDICAL - SPOKE WITH KRAIG WITH [facility] [phone] - INFORMED HIM REGARDING PT HAS RESTRICTED MEDICAL . OFFERED TO GIVE TO PATIENT FOR KAILEE. FWW DELIVERED TO PT'S ROOM.
--- NOTE | 2018-07-29 13:48 | NUR ---
PT NOTE [facility] Patient: July Laughlin : 1965 Age/Sex: 52/F Unit#: [id number] Room/Bed: 408/A User: Elsy Michelle PTA Date: 07/29/18 13:48 Type: PT Technical Record Therapy day number 2 Subjective Current complaint of pain Pain Scale NUMERIC Pain Intensity 4 (0-10) Patient Stated Goal for Pain Relief 0 (0-10) Pain Level Comment RLE Transfer Training Start Time 13:24 Supine to Sit Independent Transfer Sit to Stand Ability Supervised Bed Mobility Sit to Supine Independent Toileting Ability Supervised Transfer Training End Time 13:32 Total Transfer Training Time 8 min (8-127) Gait Training Start Time 13:32 Gait Assist Levels Supervised Assistive Devices Front Wheel Walker Ambulation Distance 40 feet Additional Gait Comments antalgic gait and step to pattern Gait Training End Time 13:48 Total Gait Training Treatment Time 16 min (8-127) Weight Bearing Assessment Label Right Lower Extremity Weight Bearing Status Weight Bearing as Chhaya Additional Weight Bearing Comments R cam boot Static Sitting Balance Good Dynamic Sitting Balance Good Standing Static Balance Good Dynamic Standing Balance Fair plus Additional Balance Assessments Comments FWW Safety Judgement Good Activity Tolerance Good Equipment Present A pump Additional Equipment Present R cam boot Post Treatment Pain Intensity 4 0-10 Total Treament Time 24 min (8-127) Total Minutes 24 Total Units 2 PT Technical Record Comment S: TRAVIS Schulz cleared pt for PT. Pt c/o 4/10 RLE pain, however agreeable to tx O: Received pt ambulating to toilet w/ assistance from RN. See above for assist levels. Gait training x 40' and presented with antalgic gait and step to pattern. Returned pt back to room/bed. Positioned pt to comfort in semifowler. RLE elevated on pillow. Call light/phone within reach. Needs met. informed RN of pt status and PT activities A: Good tolerance to tx. Decreased gait distance d/t fatigue. P: Continue w/ POC and progress as tolerated
--- NOTE | 2018-07-29 16:59 | NUR ---
UNABLE TO ARRANGE HH - DUE TO RESTRICTED MEDICAL - SENT A MESSAGE TO DR. HOPE.
[2018-07-29 17:36] VITALS: BP 140/67; PULSE 93; RESP 18
--- NOTE | 2018-07-29 18:41 | NUR ---
EOSS: Patient did good with physical therapy today and was released to nurses. Assisted to the bathroom as needed. Medicated with norco 2 tabs for pain x 2 during the shift, effective. FWW delivered to her room today. Blood sugar reading still in 200's, no s/s of hyperglycemia noted. Right leg elevated with pillow . Kept comfortable, needs attended.
[2018-07-29 19:10] VITALS: BP 142/69; PULSE 93; RESP 20
[2018-07-30 02:45] VITALS: BP 135/59; PULSE 94; RESP 20
--- NOTE | 2018-07-30 04:47 | NUR ---
END OF SHIFT NOTE: PATIENT IS A AND O X 4; NOT IN DISTRESS. VS IS WNL T - 99.5; COOLING MEASURES WERE PROVIDED ALONG WITH TYLENOL,650, PO; ALL MEDICATIONS HAVE BEEN GIVEN ORDERED AND PRN; PT'S MOTHER AT THE BED SIDE; ALL NEEDS ATTENDED; CALL LIGHT WITHIN REACH ; WILL ENDORSE TO THE DAY SHIFT RN
[2018-07-30] MEDS: HYDROCODONE/APAP (5/325) TAB PO PRN ×3 (05:02→22:49)
[2018-07-30 07:27] VITALS: BP 109/52; RESP 17
[2018-07-30] MEDS: ASPIRIN (EC) 81 MG TAB PO SCH (08:56)
[2018-07-30] MEDS: LISINOPRIL 5 MG TAB PO SCH (08:56)
[2018-07-30] MEDS: INSULIN ASPART [NOVOLOG] 3 ML PEN SC SCH ×7 (09:02→21:00)
[2018-07-30] MEDS: ENOXAPARIN 40 MG/0.4 ML SYG SC SCH (09:02)
[2018-07-30] MEDS: INSULIN GLARGINE [LANTus] (100 UNITS/ML) SYG SC SCH ×2 (09:04→20:26)
--- NOTE | 2018-07-30 11:01 | NUR ---
PT NOTE [facility] Patient: July Laughlin : 1965 Age/Sex: 53/F Unit#: [id number] Room/Bed: 408/A User: Baldomero Sosa PT Date: 07/30/18 10:17 Type: PT Technical Record Therapy day number 3 Subjective Current complaint of pain Pain Scale NUMERIC Pain Intensity 7 (0-10) Patient Stated Goal for Pain Relief 0 (0-10) Pain Level Comment R MO, pre-medicated Transfer Training Start Time 10:17 Supine to Sit Independent Transfer Sit to Stand Ability Modified Independent Bed Mobility Sit to Supine Independent Bed Transfer Ability Supervised Chair Transfer Ability Supervised Transfer Training End Time 10:27 Total Transfer Training Time 10 min (8-127) Gait Training Start Time 10:27 Gait Assist Levels Supervised Assistive Devices Front Wheel Walker Ambulation Distance 50 feet Additional Gait Comments antalgic, step-to gait pattern, forward flexed Gait Training End Time 10:42 Total Gait Training Treatment Time 15 min (8-127) Weight Bearing Assessment Label Right Lower Extremity Weight Bearing Status Weight Bearing as Chhaya Additional Weight Bearing Comments R CAM BOOT Stair Training Start Time 10:42 Stair Climbing Ability Moderate Assist Number of Stairs 4 Stairs Additional Stairs Assist Comments B railing, step-to gait pattern, R knee buckling during L swing, modA for Stair Training End Time 11:01 Total Stair Training Time 19 min (8-127) Static Sitting Balance Good Dynamic Sitting Balance Good Standing Static Balance Good Dynamic Standing Balance Fair plus Additional Balance Assessments Comments FWW Safety Judgement Good Activity Tolerance Fair Equipment Present A pump Additional Equipment Present R CAM BOOT Post Treatment Pain Intensity 5 0-10 Total Treament Time 44 min (8-127) Total Minutes 44 Total Units 3 PT Technical Record Comment S: Pt reported feeling better when compared to yesterday O: TRAVIS Ndiaye cleared pt for PT session. Pt received in bed, total assist for donning boot. Pt participated in interventions above including ambulation of 50' with FWW and ascending and descending 4 steps. Noted with stair negotiation use of B railings, step-to gait pattern, R knee buckling during L swing, modA for steadying, frequent verbal cues, descending with greater ease than ascending. Pt returned to bed, all needs in reach, no signs of distress. A: Pt demonstrates increasing indepenedence with bed mobility, transfers, and gait with use of FWW. Gait distance continues to be limited by fatigue and pain (50'). Stair ability limited by pain and R LE weakness, only able to ascend and descend 4 steps with modA. Pt has 17 steps to enter 2nd floor apartment. P: Continue c PT POC; additional session this afternoon for further stair training
--- NOTE | 2018-07-30 14:46 | PN ---
Date/Time of Note Date/Time of Note DATE: 07/30/18 TIME: 14:45 Assessment/Plan VTE Prophylaxis Risk score (from Nsg)>0 risk: 3 SCD applied (from Nsg): Yes SCD contraindicated: low risk/ambulating Pharmacological prophylaxis: heparin Lines/Catheters IV Catheter Type (from Nrsg): Saline Lock Urinary Cath still in place: No Assessment/Plan Hospital Course Right malleolar fracture -Status post ORIF of the right ankle -Patient doing well -PT OT Hypertension -Adjust as needed Uncontrolled diabetes -Patient's A1c does not signify good control -Adjust Lantus and insulin sliding scale as needed -Patient will need to follow-up with her outpatient physician to continue to adjust her diabetes medications, appears patient is on glipizide as well as Lantus, may need insulin with meals Disposition -Monitor glucose, continue current management, case management consulted for front wheel walker at home health PT. Possible DC tomorrow Result Diagram: 07/30/18 0430 07/30/18 0430 Results 24hrs Laboratory Tests Test 07/29/18 17:30 07/29/18 21:15 07/30/18 04:30 07/30/18 08:57 Bedside Glucose 217 157 160 White Blood Count 12.8 H Red Blood Count 3.94 L Hemoglobin 11.2 L Hematocrit 35.2 L Mean Corpuscular 89.3 Volume Mean Corpuscular 28.4 L Hemoglobin Mean Corpuscular 31.8 L Hemoglobin Concent Red Cell 13.1 Distribution Width Platelet Count 194 Mean Platelet Volume 10.8 H Immature 0.400 Granulocytes % Neutrophils % 74.2 Lymphocytes % 16.7 Monocytes % 6.5 Eosinophils % 2.0 Basophils % 0.2 Nucleated Red Blood 0.0 Cells % Immature 0.050 H Granulocytes # Neutrophils # 9.5 H Lymphocytes # 2.2 Monocytes # 0.8 Eosinophils # 0.3 Basophils # 0.0 Nucleated Red Blood 0.0 Cells # Sodium Level 136 Potassium Level 4.2 Chloride Level 101 Carbon Dioxide Level 27 Anion Gap 8 Blood Urea Nitrogen 14 Creatinine 0.44 Est Glomerular > 60 Filtrat Rate mL/min Glucose Level 179 Calcium Level 8.6 Phosphorus Level 3.3 Magnesium Level 1.9 Test 07/30/18 12:55 Bedside Glucose 219 Subjective 24 Hr Interval Summary Free Text/Dictation Working with PT HH was unable to be arranged yet Exam/Review of Systems Vital Signs Vitals Vital Signs Date Temp Pulse Resp B/P (MAP) Pulse Ox O2 O2 Flow FiO2 Time Delivery Rate 07/30/18 100.7 17 109/52 98 Room Air 07:27 (71) 07/30/18 94 02:45 07/28/18 2.0 07:37 Intake and Output 07/29/18 07/29/18 07/30/18 1414:59 22:59 06:59 IntakeIntake Total 400 ml BalanceBalance 400 ml Medications Medications Current Medications Ondansetron HCl (Zofran Inj) 4 mg Q6H PRN IV NAUSEA AND/OR VOMITING; Start 07/26/18 at 04:30 Acetaminophen (Tylenol Tab) 650 mg Q6H PRN PO PAIN LEVEL 1-3 OR FEVER; Start 07/26/18 at 04:30 Acetaminophen/ Hydrocodone Bitart ([place] (5/325)) 2 tab Q6H PRN PO SEVERE PAIN LEVEL 7-10 Last administered on 07/30/18at 13:39; Admin Dose 2 TAB; Start 07/26/18 at 04:30 Albuterol/ Ipratropium (Duoneb) 3 ml Q2H RESP THERAPY PRN HHN SHORTNESS OF BREATH; Start 07/26/18 at 04:30 Diagnostic Test (Pha) (Accu-Chek) 1 ea 02 XX Last administered on 07/27/18at 02:31; Admin Dose 1 EA; Start 07/27/18 at 02:00 Insulin Aspart (Novolog Insulin Pen) NOVOLOG *MODERATE* ALGORITHM WITH MEALS BEDTIME SC Last administered on 07/30/18at 13:45; Admin Dose 4 UNIT; Start 07/26/18 at 07:50 Aspirin (Halfprin) 81 mg DAILY PO Last administered on 07/30/18at 08:56; Admin Dose 81 MG; Start 07/26/18 at 09:00 Lisinopril (Zestril) 5 mg DAILY PO Last administered on 07/30/18at 08:56; Admin Dose 5 MG; Start 07/26/18 at 09:00 Miscellaneous Information 1 ea NOTE XX ; Start 07/26/18 at 05:30 Glucose (Glutose) 15 gm Q15M PRN PO DECREASED GLUCOSE; Start 07/26/18 at 05:30 Glucose (Glutose) 22.5 gm Q15M PRN PO DECREASED GLUCOSE; Start 07/26/18 at 05:30 Dextrose (D50w Syringe) 25 ml Q15M PRN IV DECREASED GLUCOSE; Start 07/26/18 at 05:30 Dextrose (D50w Syringe) 50 ml Q15M PRN IV DECREASED GLUCOSE; Start 07/26/18 at 05:30 Glucagon (Glucagen) 1 mg Q15M PRN IM DECREASED GLUCOSE; Start 07/26/18 at 05:30 Glucose (Glutose) 15 gm Q15M PRN BUCCAL DECREASED GLUCOSE; Start 07/26/18 at 05:30 IV Flush (NS 3 ml) 3 ml PER PROTOCOL IV ; Start 07/27/18 at 23:30 Enoxaparin Sodium (Lovenox) 40 mg DAILY SC Last administered on 07/30/18at 09:02; Admin Dose 40 MG; Start 07/28/18 at 09:00 Morphine Sulfate (morphine) 3 mg Q3H PRN IV SEVERE PAIN LEVEL 7-10; Start 07/27/18 at 23:30 Acetaminophen/ Hydrocodone Bitart ([place] (5/325)) 1 tab Q3H PRN PO MODERATE PAIN LEVEL 4-6; Start 07/27/18 at 23:30 Insulin Aspart (Novolog Insulin Pen) 10 unit WITH MEALS SC Last administered on 07/30/18at 12:58; Admin Dose 10 UNIT; Start 07/28/18 at 17:55 Insulin Glargine (Lantus) 36 units BID@0800,2000 SC Last administered on 9at 09:04; Admin Dose 36 UNITS; Start 07/28/18 at 20:00 MCKENZIE ESCOBAR MD Jul 30, 2018 14:46
[2018-07-30 14:51] VITALS: BP 141/66; PULSE 102; RESP 17
[2018-07-30] MEDS: ACETAMINOPHEN 325 MG TAB PO PRN (15:11)
--- NOTE | 2018-07-30 17:02 | NUR ---
HH ORDER SENT MESSAGE TO DR. ESCOBAR REGARDING PT'S INSURANCE - RESTRICTED MEDICAL DOES NOT COVER HOME HEALTH.
--- NOTE | 2018-07-30 18:50 | NUR ---
EOSS: Pt had t-max 102.0. Sepsis bundle initiated and Dr. Hagan notified. (blood cult x2, lactic acid, chest xray, UA, urine cult done). Tylenol given. Lactic acid was 1.5. Temp resolved to 98.6 by EOS. No new IVF or abx per Dr. Hagan; will continue to monitor for s/s of infection. No cough, no pain w/ urination. Pt's pain was well managed w/ q6 norco (10mg). Pt was able to ambulate w/ walker and [id number]. Boot remained on when out of bed. Pt had one small hard BM. Previous BM was 07/25. Miralax ordered by Dr. Hagan. Scheduled insulin and insulin coverage administered throughout shift. Call light w/in reach. SCDs on and bed alarm on. Pt remains A&Ox4.
[2018-07-30] MEDS ORDERED: POLYETHYLENE GLYCOL 17 GM PACKET PO ONE (19:00)
[2018-07-30 19:35] VITALS: BP 119/64; PULSE 85; RESP 16
[2018-07-31] MEDS: ACETAMINOPHEN 325 MG TAB PO PRN (00:41)
[2018-07-31] MEDS: ACCU-CHEK XX SCH (01:55)
[2018-07-31 03:18] VITALS: BP 121/57; PULSE 94; RESP 18
--- NOTE | 2018-07-31 06:30 | NUR ---
EOSS: PATIENT BEEN ASSESSED FOR PAIN. PATIENT BEEN MEDICATED WITH NORCO 2 TABS PO FOR PAIN RELIEF ONCE DURING THE SHIFT. PATIENT'S RIGHT ANKLE REMAIN CDI. PATIENT VOIDS FREELY. PATIENT'S TEMPERATURE BEEN MONITORED. CURRENTLY AFEBRILE. RIGHT FOOT BOOT BEEN IN USE WHEN OOB. HOURLY ROUNDING RENDERED. CALL LIGHT WITHIN REACH. FALL PRECAUTION OBSERVED.
[2018-07-31 07:52] VITALS: BP 138/63; PULSE 89; RESP 18
[2018-07-31] MEDS: LISINOPRIL 5 MG TAB PO SCH (09:19)
[2018-07-31] MEDS: ASPIRIN (EC) 81 MG TAB PO SCH (09:19)
[2018-07-31] MEDS: HYDROCODONE/APAP (5/325) TAB PO PRN ×2 (09:19→14:10)
[2018-07-31] MEDS: INSULIN ASPART [NOVOLOG] 3 ML PEN SC SCH ×7 (09:20→20:42)
[2018-07-31] MEDS: INSULIN GLARGINE [LANTus] (100 UNITS/ML) SYG SC SCH ×2 (09:21→20:44)
[2018-07-31] MEDS: ENOXAPARIN 40 MG/0.4 ML SYG SC SCH (09:22)
--- NOTE | 2018-07-31 09:50 | NUR ---
PT NOTE Therapy day number 4 Subjective Denies pain Pain Scale NUMERIC Pain Intensity 0 (0-10) Patient Stated Goal for Pain Relief 0 (0-10) Pain Level Comment RLE pain with mobility, premedicated, no pain pre-tx Pre Treatment Vital Signs Stable Yes Exercise Assessment Label Bilat Lower Extremity Exercise Type Active Assist ROM Additional Exercise Comments heels slides, LLE ankle pumps, bed mobility tr with BR Exercise Start Time 09:50 Exercise End Time 10:05 Total Exercise Time 15 min (8-127) Transfer Training Start Time 10:05 Supine to Sit Independent Transfer Sit to Stand Ability Modified Independent Bed Mobility Sit to Supine Independent Bed Transfer Ability Supervised Chair Transfer Ability Supervised Additional Mobility Comments RLE cam boot, modA to don/doff Transfer Training End Time 10:20 Total Transfer Training Time 15 min (8-127) Gait Training Start Time 10:20 Gait Assist Levels Supervised Assistive Devices Front Wheel Walker Ambulation Distance 50 feet Additional Gait Comments antalgic, step-to gait pattern, forward flexed, decreased cad, diaphoretic Gait Training End Time 10:30 Total Gait Training Treatment Time 10 min (8127) Weight Bearing Assessment Label Right Lower Extremity Weight Bearing Status Weight Bearing as Marko Additional Weight Bearing Comments R cam boot Stair Training Start Time 10:30 Stair Climbing Ability Stand by Assist Number of Stairs 4 Stairs Additional Stairs Assist Comments up/down,B HR, step to, good sequncing, no LOB, multiple standing rest stops Stair Training End Time 10:43 Total Stair Training Time 13 min (8-127) Static Sitting Balance Good Dynamic Sitting Balance Good Standing Static Balance Good Dynamic Standing Balance Fair plus Additional Balance Assessments Comments with FWW Safety Judgement Good Activity Tolerance Fair Equipment Present A pump Additional Equipment Present R CAM BOOT Post Treatment Pain Intensity 5 0-10 Total Treament Time 53 min (8-127) Total Minutes 53 Total Units 4 PT Technical Record Comment PT NOTE S: Pt agreeable to PT, cleared for PT per TRAVIS Ndiaye. O: Pt received semifowler in bed, alert and oriented, in no apparent distress. Performed bed mobility, transfer tr, gait training and stair tr per tech record with Indep to SBA using FWW. Pt BTB and positioned for comfort post tx with call light and needs in reach, bed alarm armed, no in no apparent distress. A: Pt marko tx fairly, limited by RLE pain with WB/mobility P: Cont POC
--- NOTE | 2018-07-31 11:52 | NUR ---
PT NOTE Therapy day number 4 Subjective Denies pain Pain Scale NUMERIC Pain Intensity 0 (0-10) Patient Stated Goal for Pain Relief 0 (0-10) Pain Level Comment RLE pain with mobility, premedicated, no pain pre-tx Transfer Training Start Time 11:52 Supine to Sit Independent Transfer Sit to Stand Ability Modified Independent Bed Mobility Sit to Supine Independent Bed Transfer Ability Supervised Chair Transfer Ability Supervised Additional Mobility Comments RLE cam boot, modA to don/doff, pt unable to reach straps Transfer Training End Time 12:07 Total Transfer Training Time 15 min (8-127) Gait Training Start Time 12:07 Gait Assist Levels Supervised Assistive Devices Front Wheel Walker Ambulation Distance 7 feet Additional Gait Comments antalgic, step-to gait pattern, forward flexed, decreased cad, diaphoretic Gait Training End Time 12:22 Total Gait Training Treatment Time 15 min (8-127) Weight Bearing Assessment Label Right Lower Extremity Weight Bearing Status Weight Bearing as Marko Additional Weight Bearing Comments R cam boot Stair Training Start Time 12:22 Stair Climbing Ability Minimum Assist Number of Stairs 13 Stairs Additional Stairs Assist Comments CGA ascend 1HR+ 1 ax crutch; Jaime to descend with B hands on 1HR, step to Stair Training End Time 12:46 Total Stair Training Time 24 min (8-127) Static Sitting Balance Good Dynamic Sitting Balance Good Standing Static Balance Good Dynamic Standing Balance Fair plus Additional Balance Assessments Comments with FWW Safety Judgement Good Activity Tolerance Fair Equipment Present A pump Additional Equipment Present R CAM BOOT Post Treatment Pain Intensity 10 0-10 Total Treament Time 54 min (8-127) Total Minutes 54 Total Units 4 PT Technical Record Comment PT NOTE S: Pt agreeable to PT, cleared for PT per TRAVIS Ndiaye. O: Pt received semifowler in bed, alert and oriented, in no apparent distress. Utilized phone ethics instructor service for Y[place]ut language for pt ed for ax crutch use. Performed bed mobility, transfer tr, gait training and stair tr per tech record with Indep to Jaime. Pt BTB and positioned for comfort post tx with call light and needs in reach, bed alarm armed, no in no apparent acute distress. A: Pt marko tx fairly, limited by RLE pain with WB/mobility P: Cont POC
--- NOTE | 2018-07-31 12:16 | NUR ---
MARIELOS NOTES: S/W DR GARCIA AFTER SPEAKING DIRECTOR OF MARIELOS DANIEL. PT HAS RS MCAL AND CANNOT SETUP HOME HEALTH. H CANNOT PAY FOR HHPT DUE TO MCAL STATUS. DR GARCIA AGREED TO KEEP THE PT ONE MORE DAY FOR STAIRS TRAINING BEFORE DC HOME TOMORROW. WILL REMAIN AVAILABLE.. ARIADNA TERAN LEAD CM [phone]
[2018-07-31] MEDS ORDERED: MAGNESIUM CITRATE 300 ML BTL PO ONE (14:30)
--- NOTE | 2018-07-31 14:43 | PN ---
DATE: 07/31/2018 Third postop day, afebrile, comfortable with dressings. Postop x-ray shows excellent alignment of th e fractures. She will be discharged with the instructions of keeping right ankle in the Cam walker b race with elevation, to be back to the office in 2 weeks for further followup care. Dictated By: KELLEY MONROE MD IK/NTS Conf#: [id number] DID#: [id number] CC: MCKENZIE ESCOBAR MD; ALETHA ALVAREZ MD;*EndCC*
--- NOTE | 2018-07-31 17:11 | PN ---
Date/Time of Note Date/Time of Note DATE: 07/31/18 TIME: 17:04 Assessment/Plan VTE Prophylaxis Risk score (from Nsg)>0 risk: 6 SCD applied (from Nsg): Yes Pharmacological prophylaxis: LMWH Lines/Catheters IV Catheter Type (from Nrsg): Saline Lock Urinary Cath still in place: No Assessment/Plan Assessment/Plan Right malleolar fracture -Status post ORIF of the right ankle -Patient doing well -PT OT Hypertension -Adjust as needed Uncontrolled diabetes -Patient's A1c does not signify good control -Adjust Lantus and insulin sliding scale as needed -Patient will need to follow-up with her outpatient physician to continue to adjust her diabetes medications, appears patient is on glipizide as well as Lantus, may need insulin with meals ?CARMEN pneumonia -asymptomatic, but with low grade temp and leucocytosis -blood cultures negative -start empiric levaquin Disposition -cannot navigate stairs properly yet per PT -has no insurance for HHPT -observe for one more day in house, plan fo d/c tomorrow Result Diagram: 07/30/18 0430 07/30/18 0430 Results 24hrs Laboratory Tests Test 07/30/18 18:22 07/30/18 20:15 07/31/18 09:14 07/31/18 14:06 Bedside Glucose 141 176 215 252 H Subjective 24 Hr Interval Summary Free Text/Dictation no new issues, wants to see orthopedic surgeon Exam/Review of Systems Vital Signs Vitals Vital Signs Date Temp Pulse Resp B/P (MAP) Pulse Ox O2 O2 Flow FiO2 Time Delivery Rate 07/31/18 98.6 89 18 138/63 96 07:52 (88) 07/30/18 Room Air 19:35 07/28/18 2.0 07:37 Intake and Output 07/30/18 07/30/18 07/31/18 1515:00 23:00 07:00 IntakeIntake Total 400 ml 1110 ml 200 ml BalanceBalance 400 ml 1110 ml 200 ml Exam Constitutional: alert, oriented Head: normocephalic Respiratory: clear to auscultation Cardiovascular: regular rate and rhythm Gastrointestinal: soft, non-tender, bowel sounds Musculoskeletal: other (RLE bandaged and raised) Medications Medications Current Medications Ondansetron HCl (Zofran Inj) 4 mg Q6H PRN IV NAUSEA AND/OR VOMITING; Start 07/26/18 at 04:30 Acetaminophen (Tylenol Tab) 650 mg Q6H PRN PO PAIN LEVEL 1-3 OR FEVER Last administered on 07/31/18at 00:41; Admin Dose 650 MG; Start 07/26/18 at 04:30 Acetaminophen/ Hydrocodone Bitart ([place] (5/325)) 2 tab Q6H PRN PO SEVERE PAIN LEVEL 7-10 Last administered on 07/31/18at 14:10; Admin Dose 2 TAB; Start 07/26/18 at 04:30 Albuterol/ Ipratropium (Duoneb) 3 ml Q2H RESP THERAPY PRN HHN SHORTNESS OF BREATH; Start 07/26/18 at 04:30 Diagnostic Test (Pha) (Accu-Chek) 1 ea 02 XX Last administered on 07/27/18at 02:31; Admin Dose 1 EA; Start 07/27/18 at 02:00 Insulin Aspart (Novolog Insulin Pen) NOVOLOG *MODERATE* ALGORITHM WITH MEALS BEDTIME SC Last administered on 07/31/18at 14:15; Admin Dose 6 UNIT; Start 07/26/18 at 07:50 Aspirin (Halfprin) 81 mg DAILY PO Last administered on 07/31/18at 09:19; Admin Dose 81 MG; Start 07/26/18 at 09:00 Lisinopril (Zestril) 5 mg DAILY PO Last administered on 07/31/18at 09:19; Admin Dose 5 MG; Start 07/26/18 at 09:00 Miscellaneous Information 1 ea NOTE XX ; Start 07/26/18 at 05:30 Glucose (Glutose) 15 gm Q15M PRN PO DECREASED GLUCOSE; Start 07/26/18 at 05:30 Glucose (Glutose) 22.5 gm Q15M PRN PO DECREASED GLUCOSE; Start 07/26/18 at 05:30 Dextrose (D50w Syringe) 25 ml Q15M PRN IV DECREASED GLUCOSE; Start 07/26/18 at 05:30 Dextrose (D50w Syringe) 50 ml Q15M PRN IV DECREASED GLUCOSE; Start 07/26/18 at 05:30 Glucagon (Glucagen) 1 mg Q15M PRN IM DECREASED GLUCOSE; Start 07/26/18 at 05:30 Glucose (Glutose) 15 gm Q15M PRN BUCCAL DECREASED GLUCOSE; Start 07/26/18 at 05:30 IV Flush (NS 3 ml) 3 ml PER PROTOCOL IV ; Start 07/27/18 at 23:30 Enoxaparin Sodium (Lovenox) 40 mg DAILY SC Last administered on 07/31/18at 09:22; Admin Dose 40 MG; Start 07/28/18 at 09:00 Morphine Sulfate (morphine) 3 mg Q3H PRN IV SEVERE PAIN LEVEL 7-10; Start 07/27/18 at 23:30 Acetaminophen/ Hydrocodone Bitart ([place] (5/325)) 1 tab Q3H PRN PO MODERATE PAIN LEVEL 4-6; Start 07/27/18 at 23:30 Insulin Aspart (Novolog Insulin Pen) 10 unit WITH MEALS SC Last administered on 07/31/18at 14:17; Admin Dose 10 UNIT; Start 07/28/18 at 17:55 Insulin Glargine (Lantus) 36 units BID@0800,2000 SC Last administered on 07/31/18at 09:21; Admin Dose 36 UNITS; Start 07/28/18 at 20:00 Docusate Sodium (Colace) 250 mg DAILY PO ; Start 08/01/18 at 09:00 NUBIA GARCIA Jul 31, 2018 17:11
[2018-07-31] MEDS: LEVOFLOXACIN 500 MG TAB PO SCH (17:51)
[2018-07-31 19:35] VITALS: BP 135/61; PULSE 93; RESP 16
--- NOTE | 2018-07-31 20:38 | NUR ---
EOSS: Pt remained stable during shift, A&Ox4, VSS, voiding in toilet, ambulating to bathroom w/ boot and walker. Pt tolerated diet well. Blood sugars managed per MD orders. Levaquin started and pt was educated on purpose being that she has had mild fevers and the doctor wants to administer an antibiotic in order to treat any potential infection. Pt verbalized understanding. Pt only tolerated 13 stairs today so PT recommended pt should stay 1 more night since pt has 17 stairs at home. Pain was well managed w/ current pain regimen. Pt informed that she needs to schedule an appointment w/ Dr. Savage in 2weeks and when she calls she needs to tell them that Dr. Savage is aware that he doesn't accept her insurance but he still wants them to schedule an appointment for her. Dr. Jung would like pt to receive thorough education of her diabetes management regimen since she will go home with a new regimen. Call light within reach, foot elevated, bed alarm on.
[2018-08-01] MEDS: HYDROCODONE/APAP (5/325) TAB PO PRN ×3 (01:00→15:52)
[2018-08-01] MEDS: ACCU-CHEK XX SCH (01:17)
[2018-08-01 01:26] VITALS: BP 133/60; PULSE 105; RESP 18
[2018-08-01] MEDS: LEVOFLOXACIN 500 MG TAB PO SCH (04:51)
--- NOTE | 2018-08-01 05:32 | NUR ---
EOSS: PATIENT BEEN ASSESSED FOR PAIN. PATIENT BEEN MEDICATED WITH NORCO 2 TABS PO WITH REPORTED RELIEF. RIGHT ANKLE DSG REMAIN CDI. RIGHT ANKLE ELEVATED ON PILLOW. PATIENT VOIDS FREELY WITH STANDBY ASSIST. TEMPERATURE BEEN MONITORED. REMAIN AFEBRILE. BLOOD SUGAR BEEN MONITORED ORDERED. HOURLY ROUNDING RENDERED. FALL PRECAUTION OBSERVED. CALL LIGHT WITHIN REACH.
[2018-08-01 07:40] VITALS: BP 131/63; PULSE 86; RESP 19
[2018-08-01] MEDS ORDERED: DOCUSATE SODIUM 250 MG CAP PO SCH (09:00)
--- NOTE | 2018-08-01 09:13 | NUR ---
PT JASMYNE Roca [facility] Patient: July Laughlin : 1965 Age/Sex: 53/F Unit#: [id number] Room/Bed: 408/A User: Elsy Michelle PTA Date: 08/01/18 09:13 Type: PT Technical Record Therapy day number 5 Subjective Denies pain Pain Scale NUMERIC Pain Intensity 0 (0-10) Patient Stated Goal for Pain Relief 0 (0-10) Pain Level Comment RLE pain Transfer Training Start Time 08:20 Supine to Sit Independent Transfer Sit to Stand Ability Modified Independent Bed Mobility Sit to Supine Independent Bed Transfer Ability Modified Independent Chair Transfer Ability Modified Independent Transfer Training End Time 08:45 Total Transfer Training Time 25 min (8-127) Gait Training Start Time 08:45 Gait Assist Levels Modified Independent Assistive Devices Front Wheel Walker Ambulation Distance 100 feet Additional Gait Comments step to pattern Gait Training End Time 09:13 Total Gait Training Treatment Time 28 min (8-127) Weight Bearing Assessment Label Right Lower Extremity Weight Bearing Status Weight Bearing as Chhaya Additional Weight Bearing Comments R cam boot Stair Climbing Ability Minimum Assist Number of Stairs 8 Stairs Additional Stairs Assist Comments 4 steps x2 asc/desc w/ use of bilateral hand rails, step to pattern Static Sitting Balance Good Dynamic Sitting Balance Good Standing Static Balance Good Dynamic Standing Balance Fair plus Additional Balance Assessments Comments FWW Safety Judgement Good Activity Tolerance Good Equipment Present A pump Additional Equipment Present R cam boot Post Treatment Pain Intensity 0 0-10 Total Treament Time 53 min (8-127) Total Minutes 53 Total Units 4 PT Technical Record Comment S: TRAVIS Watson cleared pt for PT. Pt denied pain and agreeable to tx. Used translation line; 1110; for frisian. O: Received pt in semifowler. see above for assist levels. Gait training x 100' and presented with antalgic gait and step to pattern. Performed stair training x 4 steps x2 asc/desc w/ use of bilateral hand rails, step to pattern. Returned pt back to room/bed. Requested to be seated at EOB. Call light/phone within reach. Needs met. Left pt w/ RN present in room. Rn informed of pt status and PT activities A: Good tolerance to tx. Jaime to don cam boot. Improved gait distance P: Continue w/ POC and progress as tolerated. Will benefit from 1 more session for stair training
[2018-08-01] MEDS: ASPIRIN (EC) 81 MG TAB PO SCH (09:14)
[2018-08-01] MEDS: LISINOPRIL 5 MG TAB PO SCH (09:14)
[2018-08-01] MEDS: INSULIN ASPART [NOVOLOG] 3 ML PEN SC SCH ×5 (09:22→18:22)
[2018-08-01] MEDS: INSULIN GLARGINE [LANTus] (100 UNITS/ML) SYG SC SCH (09:23)
[2018-08-01] MEDS: ENOXAPARIN 40 MG/0.4 ML SYG SC SCH (09:24)
--- NOTE | 2018-08-01 13:10 | PN ---
Date/Time of Note Date/Time of Note DATE: 08/01/18 TIME: 13:09 Assessment/Plan VTE Prophylaxis Risk score (from Ns)>0 risk: 9 SCD applied (from Ns): Yes Pharmacological prophylaxis: LMWH Lines/Catheters IV [facility]from [facility] [place] Urinary Cath still in place: No Assessment/Plan Result Diagram: 08/01/18 0440 08/01/18 0440 Results 24hrs Laboratory Tests Test 07/31/18 14:06 07/31/18 17:49 07/31/18 20:42 08/01/18 04:40 Bedside Glucose 252 H 120 160 White Blood Count 11.2 H Red Blood Count 3.84 L Hemoglobin 11.1 L Hematocrit 34.4 L Mean Corpuscular 89.6 Volume Mean Corpuscular 28.9 L Hemoglobin Mean Corpuscular 32.3 Hemoglobin Concent Red Cell 13.2 Distribution Width Platelet Count 215 Mean Platelet Volume 10.6 H Immature 0.400 Granulocytes % Neutrophils % 70.5 Lymphocytes % 21.2 Monocytes % 6.2 Eosinophils % 1.3 Basophils % 0.4 Nucleated Red Blood 0.0 Cells % Immature 0.050 H Granulocytes # Neutrophils # 7.9 H Lymphocytes # 2.4 Monocytes # 0.7 Eosinophils # 0.2 Basophils # 0.0 Nucleated Red Blood 0.0 Cells # Sodium Level 140 Potassium Level 4.4 Chloride Level 103 Carbon Dioxide Level 29 Anion Gap 8 Blood Urea Nitrogen 14 Creatinine 0.55 Est Glomerular > 60 Filtrat Rate mL/min Glucose Level 184 Calcium Level 8.7 Test 08/01/18 09:13 Bedside Glucose 177 Subjective 24 Hr Interval Summary Free Text/Dictation S: feels ok O: General: A&O x3, answering questions appropriately HEENT: NC/ AT. PERRL. EOM intact Neck: supple CVS: S1, S2, RRR. no murmurs. no pain on chest wall palpation Lungs: CTA b/l. no wheezing or rhonchi Abd: soft, nontender, +BS assessment and plan: Right malleolar fracture -Status post ORIF of the right ankle -Patient doing well -PT OT Hypertension -Adjust as needed Uncontrolled diabetes -Patient's A1c does not signify good control -Adjust Lantus and insulin sliding scale as needed -Patient will need to follow-up with her outpatient physician to continue to adjust her diabetes medications, appears patient is on glipizide as well as [place] ntus, may need insulin with meals ?CARMEN pneumonia -asymptomatic, but with low grade temp and leucocytosis -blood cultures negative -Continue empiric levaquin Disposition -Still not cleared for discharge per physical therapy, continue inpatient rehab, no options available for outpatient rehab at this time. discharge once cleared Exam/Review of Systems Vital Signs Vitals Vital Signs Date Temp Pulse Resp B/P (MAP) Pulse Ox O2 O2 Flow FiO2 Time Delivery Rate 08/01/18 98.2 86 19 131/63 98 07:40 (85) 08/01/18 Room Air 01:26 07/28/18 2.0 07:37 Intake and Output 07/31/18 07/31/18 08/01/18 1515:00 23:00 07:00 IntakeIntake Total 400 ml 200 ml OutputOutput Total 1 ml BalanceBalance 400 ml 199 ml Medications Medications Current Medications Ondansetron HCl (Zofran Inj) 4 mg Q6H PRN IV NAUSEA AND/OR VOMITING; Start 07/26/18 at 04:30 Acetaminophen (Tylenol Tab) 650 mg Q6H PRN PO PAIN LEVEL 1-3 OR FEVER Last administered on 07/31/18at 00:41; Admin Dose 650 MG; Start 07/26/18 at 04:30 Acetaminophen/ Hydrocodone Bitart ([place] (5/325)) 2 tab Q6H PRN PO SEVERE PAIN LEVEL 7-10 Last administered on 08/01/18at 09:32; Admin Dose 2 TAB; Start 07/26/18 at 04:30 Albuterol/ Ipratropium (Duoneb) 3 ml Q2H RESP THERAPY PRN HHN SHORTNESS OF BREATH; Start 07/26/18 at 04:30 Diagnostic Test (Pha) (Accu-Chek) 1 ea 02 XX Last administered on 07/27/18at 02:31; Admin Dose 1 EA; Start 07/27/18 at 02:00 Insulin Aspart (Novolog Insulin Pen) NOVOLOG *MODERATE* ALGORITHM WITH MEALS BEDTIME SC Last administered on 08/01/18at 09:22; Admin Dose 2 UNIT; Start 07/26/18 at 07:50 Aspirin (Halfprin) 81 mg DAILY PO Last administered on 08/01/18at 09:14; Admin Dose 81 MG; Start 07/26/18 at 09:00 Lisinopril (Zestril) 5 mg DAILY PO Last administered on 08/01/18at 09:14; Admin Dose 5 MG; Start 07/26/18 at 09:00 Miscellaneous Information 1 ea NOTE XX ; Start 07/26/18 at 05:30 Glucose (Glutose) 15 gm Q15M PRN PO DECREASED GLUCOSE; Start 07/26/18 at 05:30 Glucose (Glutose) 22.5 gm Q15M PRN PO DECREASED GLUCOSE; Start 07/26/18 at 05:30 Dextrose (D50w Syringe) 25 ml Q15M PRN IV DECREASED GLUCOSE; Start 07/26/18 at 05:30 Dextrose (D50w Syringe) 50 ml Q15M PRN IV DECREASED GLUCOSE; Start 07/26/18 at 05:30 Glucagon (Glucagen) 1 mg Q15M PRN IM DECREASED GLUCOSE; Start 07/26/18 at 05:30 Glucose (Glutose) 15 gm Q15M PRN BUCCAL DECREASED GLUCOSE; Start 07/26/18 at 05:30 IV Flush (NS 3 ml) 3 ml PER PROTOCOL IV ; Start 07/27/18 at 23:30 Enoxaparin Sodium (Lovenox) 40 mg DAILY SC Last administered on 08/01/18at 09:24; Admin Dose 40 MG; Start 07/28/18 at 09:00 Morphine Sulfate (morphine) 3 mg Q3H PRN IV SEVERE PAIN LEVEL 7-10; Start 07/27/18 at 23:30 Acetaminophen/ Hydrocodone Bitart ([place] (5/325)) 1 tab Q3H PRN PO MODERATE PAIN LEVEL 4-6; Start 07/27/18 at 23:30 Insulin Aspart (Novolog Insulin Pen) 10 unit WITH MEALS SC Last administered on 08/01/18at 09:23; Admin Dose 10 UNIT; Start 07/28/18 at 17:55 Insulin Glargine (Lantus) 36 units BID@0800,2000 SC Last administered on 08/01/18at 09:23; Admin Dose 36 UNITS; Start 07/28/18 at 20:00 Docusate Sodium (Colace) 250 mg DAILY PO Last administered on 08/01/18at 09:14; Admin Dose 250 MG; Start 08/01/18 at 09:00 Levofloxacin (Levaquin) 500 mg DAILY@06 PO Last administered on 08/01/18at 04:51; Admin Dose 500 MG; Start 07/31/18 at 17:30 NUBIA GARCIA Aug 01, 2018 13:10
[2018-08-01] MEDS ORDERED: INSU300I SQ (14:01)
[2018-08-01] MEDS ORDERED: LEVO500T48 PO (14:01)
[2018-08-01] MEDS ORDERED: LACT1CAP57 PO (14:01)
[2018-08-01] MEDS ORDERED: ASPI81TA50 PO (14:01)
[2018-08-01] MEDS ORDERED: DOCU250C58 PO (14:01)
[2018-08-01] MEDS ORDERED: NOVO3I SC (14:01)
[2018-08-01] MEDS ORDERED: LISI-313 PO (14:01)
[2018-08-01] MEDS ORDERED: HYDR-3601 PO (14:02)
--- NOTE | 2018-08-01 14:17 | DS ---
Date/Time of Note Date/Time of Note DATE: 08/01/18 TIME: 14:12 Discharge Summary Admission/Discharge Info Admit Date/Time Jul 27, 2018 at 14:30 Discharge Date/Time Discharge Diagnosis Right malleolar fracture -Status post ORIF of the right ankle Hypertension : good control Uncontrolled diabetes: improved control ?CARMEN pneumonia . Patient Condition: Stable Consults Ortho: Dr. Savage . Procedures DATE OF OPERATION: 07/27/2018 PREOPERATIVE DIAGNOSIS: Bimalleolar fracture of the right ankle. POSTOPERATIVE DIAGNOSIS: Bimalleolar fracture of the right ankle. PROCEDURE PERFORMED: Open reduction and internal fixation of the bimalleolar fracture of the right ankle. ANESTHESIA: General anesthesia. SURGEON: Liu Savage MD . Hospital Course 53-year-old female who had come in after midnight mechanical fall found to have right malleolar fracture as well as poorly controlled diabetes mellitus. She was admitted, underwent open reduction internal fixation of right ankle, diabetes regimen was adjusted and now shows improved control, patient has been evaluated and is stable for discharge. Patient has stairs at home, and physical therapy is working with her on stair navigation. She will be discharged once cleared by physical therapy. . Home Meds Active Scripts Lactobacillus Rhamnosus* (Culturelle*) 1 Each Cap.sprink, 1 CAP PO BID, #14 CAP Prov:NUBIA GARCIA. 08/01/18 Insulin Aspart* (Novolog Insulin Pen*) 100 Unit/Ml Soln, 13 UNIT SC WITH MEALS, #12 VIAL 1 Refill Prov:NUBIA GARCIA. 08/01/18 Docusate Sodium* (Colace*) 250 Mg Capsule, 250 MG PO DAILY, #30 CAP 1 Refill Prov:NUBIA GARCIA. 08/01/18 Levofloxacin* (Levaquin*) 500 Mg Tablet, 500 MG PO DAILY@06, #7 TAB Prov:STEFANI GARCIAMira Chance. 08/01/18 Insulin Glargine,Hum.rec.anlog ([place] Solostar) 300 Unit/1 Ml Insuln.pen, 36 UNIT SQ BID, #11 VIAL 1 Refill Prov:STEFANI GARCIAMira Chance. 08/01/18 Aspirin (Aspir-Low) 81 Mg Tablet.dr, 81 MG PO DAILY, #30 TAB 1 Refill Prov:NUBIA GARCIA 08/01/18 Lisinopril* (Lisinopril*) 5 Mg Tablet, 5 MG PO DAILY, #30 TAB 1 Refill Prov:NUBIA GARCIA 08/01/18 Reported Medications Glipizide* (Glipizide*) 10 Mg Tablet, 20 MG PO AC BREAKFAST DINNER, TAB 01/27/17 Discontinued Scripts Levofloxacin* (Levofloxacin*) 750 Mg Tablet, 750 MG PO DAILY for 10 Days, TAB Prov:PHILIPP MORAN DO 01/27/17 Follow-up Plan Followup with your primary doctor within the next 1-2 weeks. If you don't have one please let someone know, we can give you resources that may help you pick one. You may call Dr Anastacio Kendall's office. he's accepting new patients Name, Degree: Anastacio Kendall MD Specialty: Internal Medicine Comments: Office Address: [address] [place] [address] Office Office You may also call your insurance company to assign one to you. Review your medication list with your nurse before leaving and if you need new prescriptions please let your nurse know. I may have made changes to your home medications or given you new prescriptions, please let your primary doctor know as well. Stay compliant with your medications and report any side effects to your PCP or pharmacist. Return to the ER if you have any concerns and cannot reach your doctors or call your insurance company, they usually have a nurse that can help you. Primary Care Provider Care Physician No Primary Time spent on discharge: > 30 minutes Pending Labs Laboratory Tests Test 07/31/18 17:49 07/31/18 20:42 08/01/18 04:40 08/01/18 09:13 Bedside 120 160 177 Glucose mg/dL (70-220) mg/dL (70-220) mg/dL (70-220) White Blood 11.2 Count 10^3/ul (4.8-1 0.8) Red Blood 3.84 Count 10^6/ul (4.20- 5.40) Hemoglobin 11.1 g/dl (12.0-16. 0) Hematocrit 34.4 % (37.0-47.0) Mean 89.6 Corpuscular fl (82.0-101.0 Volume ) Mean 28.9 Corpuscular pg (29.0-33.0) Hemoglobin Mean 32.3 Corpuscular g/dl (32.0-37. Hemoglobin Conc 0) ent Red Cell 13.2 Distribution % (11.5-14.5) Width Platelet Count 215 10^3/UL (140-4 15) Mean Platelet 10.6 Volume fl (7.4-10.4) Immature 0.400 Granulocytes % % (0.001-0.429 ) Neutrophils % 70.5 % (39.0-77.0) Lymphocytes % 21.2 % (15.0-51.0) Monocytes % 6.2 % (0.0-11.0) Eosinophils % 1.3 % (0.0-7.0) Basophils % 0.4 % (0.0-2.0) Nucleated Red 0.0 Blood Cells % /100WBC (0.0-0 .0) Immature 0.050 Granulocytes # 10^3/ul (0.0-0 .031) Neutrophils # 7.9 10^3/ul (1.6-7 .5) Lymphocytes # 2.4 10^3/ul (0.8-2 .9) Monocytes # 0.7 10^3/ul (0.3-0 .9) Eosinophils # 0.2 10^3/ul (0.0-0 .5) Basophils # 0.0 10^3/ul (0.0-0 .1) Nucleated Red 0.0 Blood Cells # 10^3/ul (0.0-0 .0) Sodium Level 140 mmol/L (135-14 4) Potassium 4.4 Level mmol/L (3.5-5. 1) Chloride Level 103 mmol/L (97-110 ) Carbon Dioxide 29 Level mmol/L (21-31) Anion Gap 8 (5-13) Blood Urea 14 Nitrogen mg/dl (7-20) Creatinine 0.55 mg/dl (0.44-1. 00) Est Glomerular > 60 Filtrat mL/min (>60) Rate mL/min Glucose Level 184 mg/dl (70-220) Calcium Level 8.7 mg/dl (8.4-10. 2) Test 08/01/18 13:18 Bedside 219 Glucose mg/dL (70-220) NUBIA GARCIA Aug 01, 2018 14:17
--- NOTE | 2018-08-01 15:09 | NUR ---
PT NOTE [facility] Patient: July Laughlin : 1965 Age/Sex: 53/F Unit#: [id number] Room/Bed: 408/A User: Elsy Michelle PTA Date: 08/01/18 15:09 Type: PT Technical Record Therapy day number 5 Subjective Denies pain Pain Scale NUMERIC Pain Intensity 0 (0-10) Patient Stated Goal for Pain Relief 0 (0-10) Pain Level Comment denied pain Transfer Training Start Time 14:30 Supine to Sit Independent Transfer Sit to Stand Ability Modified Independent Bed Mobility Sit to Supine Independent Bed Transfer Ability Modified Independent Chair Transfer Ability Modified Independent Toileting Ability Independent Transfer Training End Time 14:45 Total Transfer Training Time 15 min (8-127) Gait Training Start Time 14:45 Gait Assist Levels Modified Independent Assistive Devices Front Wheel Walker Ambulation Distance 110 feet Additional Gait Comments step to pattern Gait Training End Time 15:09 Total Gait Training Treatment Time 24 min (8-127) Weight Bearing Assessment Label Right Lower Extremity Weight Bearing Status Weight Bearing as Chhaya Additional Weight Bearing Comments R cam boot Stair Climbing Ability Stand by Assist Number of Stairs 12 Stairs Additional Stairs Assist Comments 4 steps x3 asc/desc w/ use of bilateral hand rails, step to pattern Static Sitting Balance Good Dynamic Sitting Balance Good Standing Static Balance Good Dynamic Standing Balance Fair plus Additional Balance Assessments Comments FWW Safety Judgement Good Activity Tolerance Good Equipment Present A pump Additional Equipment Present R cam boot Post Treatment Pain Intensity 0 0-10 Total Treament Time 39 min (8-127) Total Minutes 39 Total Units 3 PT Technical Record Comment S: TRAVIS Watson cleared pt for PT. Pt denied pain and agreeable to tx O: Received pt in semifowler. See above for assist levels. Gait training x 110' and presented with antalgic gait and step to pattern. Jaime to don/doff R cam boot. Performed stair training x 4 steps x3 asc/desc w/ use of bilateral hand rails, step to pattern. VC for sequencing. Returned pt back to room/bed. Positioned pt to comfort in semifowler. RLE elevated on pillows. SCD's on. Needs met. RN informed of pt status and PT activities A: Good tolerance to tx. Improved gait distance and assistance during stair training P: Pt has progressed well and met PT POC goals. Communicated w/ supervising PT, and pt no longer requiring inpatient PT services. Will endorse to nursing.
[2018-08-01 15:41] VITALS: BP 129/60; PULSE 80; RESP 19
[2018-08-01] MEDS ORDERED: INSULIN ASPART [NOVOLOG] 3 ML PEN SC SCH (17:55)
--- NOTE | 2018-08-01 18:49 | NUR ---
Discharge note Patient and daughter educated on all discharge instructions, prescriptions and patient health summary. IV access removed and dry gauze applied. Patient denied experiencing any pain/discomfort. Accucheck assessed 185, patient received 13units of standing dose of aspart and an additional 4 units for sliding scale for a total of 17 units. Patient was provided with her dinner tray. Patient and daughter were educated on the importance of following up with Dr higuera within 2 weeks for her post op appointment. Patient also educated in detail Patient received two doses of [place] po prn for pain medication and verbalized relief of pain. Patient stable at this time, accompanied by daughter.
== END 2018-08-01 18:58 | disposition home or self-care (01) | DRG 494 ==
LOC: E/R 22:54 → MS1 07-26 04:04 → OBSVTOIN 07-27 14:30 → MS1 07-28 22:14
PROVIDERS: ADMIT Internal Medicine; ATTEND Family Medicine
PROC: 0QSG04Z Reposition Right Tibia with Internal Fixation Device, Open Approach (ICD-10-PCS; 2018-07-27)
PROC: 0QSJ04Z Reposition Right Fibula with Internal Fixation Device, Open Approach (ICD-10-PCS; principal; 2018-07-27 14:00)
DX: S82.841A Displaced bimalleolar fracture of right lower leg, initial encounter for closed fracture (principal); I10 Essential (primary) hypertension; E11.65 Type 2 diabetes mellitus with hyperglycemia; E66.9 Obesity, unspecified; Z68.36 Body mass index [BMI] 36.0-36.9, adult; I16.0 Hypertensive urgency; W19.XXXA Unspecified fall, initial encounter
CPT/HCPCS: 36415; 71045; 73600; 73630; 73700; 80048; 80053; 81001; 82962; 83036; 83605; 83690; 83735; 84100; 84484; 84703; 85025; 85610; 85730; 87040; 87086; 93005; 97110; 97116; 97161; 97530; C1713; G0378; J0690; J1100; J1644; J1650; J1815; J1885; J2250; J2270; J2405; J2710; J2765; J2795; J3010; J7030; L4387